=== PATIENT | male | born 1970 | race Two or more races ===

== ENCOUNTER 2017-03-13 12:14 | Inpatient (IN) | payer OTHER ==
[2017-03-13 12:37] VITALS: BMI 23.6
[2017-03-13] MEDS ORDERED: MAGNESIUM CITRATE 300 ML BOTTLE PO PRN (14:09)
[2017-03-13] MEDS ORDERED: MAGNESIUM HYDROX 2400MG/30ML ORAL SUSPENSION 30 ML CUP PO PRN (14:09)
[2017-03-13] MEDS ORDERED: MAG HYDROX/AL HYDROX/SIMETH 30 ML UNIT-DOSE CUP PO PRN (14:09)
[2017-03-13] MEDS ORDERED: guaiFENesin/D-METHORPHAN HB 10 ML UNIT-DOSE CUPS PO PRN (14:09)
[2017-03-13] MEDS ORDERED: MENTHOL/PHENOL 1 EACH UD MM PRN (14:09)
[2017-03-13] MEDS ORDERED: chlordiazePOXIDE HCL 25 MG CAPSULE PO PRN (14:09)
[2017-03-13] MEDS ORDERED: P-EPHED 60MG/TRIPROLIDI 2.5MG TABLET PO PRN (14:09)
[2017-03-13] MEDS ORDERED: IBUPROFEN 400 MG TABLET (FP) PO PRN (14:09)
[2017-03-13] MEDS ORDERED: ACETAMINOPHEN 325 MG TABLET (FP) PO PRN (14:09)
[2017-03-13] MEDS ORDERED: LOPERAMIDE HCL 2 MG CAPSULE PO PRN (14:09)
[2017-03-13] MEDS ORDERED: chlordiazePOXIDE HCL 25 MG CAPSULE PO ONE (14:09)
--- NOTE | 2017-03-13 14:16 | HP ---
CIWA Score - CIWA Score Nausea/Vomitin Muscle Tremors: 4-Moderate,w/Arms Extend Anxiety: 4-Mod. Anxious/Guarded Agitation: 4-Moderately Restless Paroxysmal Sweats: 3 Orientation: 1-Uncertain about Date Tacttile Disturbances: 0-None Auditory Disturbances: 0-None Visual Disturbances: 0-None Headache: 0-None Present CIWA-Ar Total Score: 18 Admission ROS BHS - HPI Chief Complaint: Withdrawal sx. Allergies/Adverse Reactions: Allergies Allergy/AdvReac Type Severity Reaction Status Date / Time No Known Allergies Allergy Verified 03/13/17 13:44 History of Present Illness: 46 y/o man with a long hx. of alcoholism is admitted for detox. Pt. has been in previous detox, denies significant sobriety. Lasr detox at [facility] in December 2016. Exam Limitations: No Limitations - Ebola screening Have you traveled outside of the country in the last 21 days: No Have you had contact with anyone from an Ebola affected area: No Have you been sick,other than usual withdrawal symptoms: No Do you have a fever: No - Review of Systems Constitutional: Diaphoresis EENT: reports: No Symptoms Reported Respiratory: reports: No Symptoms reported Cardiac: reports: No Symptoms Reported GI: reports: Nausea, Abdominal cramping : reports: No Symptoms Reported Musculoskeletal: reports: No Symptoms Reported Integumentary: reports: Sweating Neuro: reports: Seizure (last seizure a year ago), Tremors Endocrine: reports: No Symptoms Reported Hematology: reports: No Symptoms Reported Psychiatric: reports: No Sypmtoms Reported Other Systems: Reviewed and Negative Patient History - Patient Medical History Hx Anemia: No Hx Asthma: No Hx Chronic Obstructive Pulmonary Disease (COPD): No Hx Cancer: No Hx Cardiac Disorders: No Hx Congestive Heart Failure: No Hx Hypertension: Yes Hx Hypercholesterolemia: No Hx Pacemaker: No HX Cerebrovascular Accident: No Hx Seizures: Yes (1 YR AGO) Hx Dementia: No Hx Diabetes: No Hx Gastrointestinal Disorders: No Hx Liver Disease: No Hx Genitourinary Disorders: No Hx Sexually Transmitted Disorders: No Hx Renal Disease (ESRD): No Hx Thyroid Disease: No Hx Human Immunodeficiency Virus (HIV): No Hx Hepatitis C: No Hx Depression: No Hx Suicide Attempt: No Hx Bipolar Disorder: No Hx Schizophrenia: No - Patient Surgical History Past Surgical History: No - PPD History Previous Implant?: Yes Documented Results: Negative w/o proof Implanted On Prior [facility] Admission?: No PPD to be Administered?: Yes - Smoking Cessation Smoking history: Current every day smoker Have you smoked in the past 12 months: Yes Aproximately how many cigarettes per day: 7 Hx Chewing Tobacco Use: No Initiated information on smoking cessation: Yes 'Breaking Loose' booklet given: 03/13/17 - Substance & Tx. History Hx Alcohol Use: Yes Hx Substance Use: No Substance Use Type: Alcohol Hx Substance Use Treatment: Yes (Detox at [facility] in december 2016) - Substances Abused Alcohol Route: Oral Frequency: Daily Amount used: BEER(4 24 OZ CANS)/VODKA 1/2 PINT Age of first use: 22 Date of Last Use: 03/12/17 Family Disease History - Family Disease History Family Disease History: Other: Brother (Alcohol) Admission Physical Exam [facility] - Vital Signs Vital Signs: Vital Signs - 24 hr 03/13/17 12:33 Temperature 97.9 F Pulse Rate 87 Respiratory 20 Rate Blood Pressure 164/112 - Physical General Appearance: Yes: Alcohol on Breath, Tremorous, Irritable, Sweating, Anxious HEENTM: Yes: Within Normal Limits Respiratory: Yes: Chest Non-Tender, Lungs Clear, Normal Breath Sounds Neck: Yes: Supple Breast: Yes: Breast Exam Deferred Cardiology: Yes: Regular Rhythm, Regular Rate, S1, S2 Abdominal: Yes: Normal Bowel Sounds, Non Tender, Flat, Soft Genitourinary: Yes: Within Normal Limits Back: Yes: Within Normal Limits Musculoskeletal: Yes: Within Normal Limits Extremities: Yes: Tremors Neurological: Yes: Fully Oriented, Alert Integumentary: Yes: Diaphoresis Lymphatic: Yes: Within Normal Limits - Diagnostic (1) Alcohol dependence with uncomplicated withdrawal Current Visit: Yes Status: Acute (2) HTN (hypertension) Current Visit: Yes Status: Acute Qualifiers: Hypertension type: essential hypertension Qualified Code(s): I10 - Essential (primary) hypertension Cleared for Admission [facility] - Detox or Rehab [facility] Level of Care: Medically Managed Detox Regimen/Protocol: Librium [facility] Breath Alcohol Content Breath Alcohol Content: 0.069 Urine Drug Screen - Results Drug Screen Negative: Yes
[2017-03-13] MEDS: NICOTINE 21 MG/24 HOURS TOPICAL PATCH TD SCH (15:25)
[2017-03-13] MEDS: amLODIPine BESYLATE 10 MG TABLET (FP) PO SCH (15:26)
[2017-03-13] MEDS: hydrOXYzine PAMOATE 50 MG CAPSULE (FP) PO PRN (15:33)
[2017-03-13] MEDS: chlordiazePOXIDE HCL 25 MG CAPSULE PO SCH ×2 (17:48→22:34)
[2017-03-13 19:17] LABS: URINE APPEARANCE SLCLOUDY; URINE BILIRUBIN NEGATIVE (NEGATIVE); URINE BLOOD 2+ (NEGATIVE); URINE COLOR AMBER; URINE GLUCOSE (UA) NEGATIVE (NEGATIVE); URINE KETONE 1+ (NEGATIVE); URINE LEUK ESTERASE NEGATIVE (NEGATIVE); URINE NITRITE NEGATIVE (NEGATIVE)
[2017-03-13 19:22] LABS: URINE PROTEIN 2+ (NEGATIVE)
[2017-03-13 19:25] LABS: URINE MUCUS MANY; URINE RBC 7 /hpf (0-3); URINE WBC 2 /hpf (3-5)
[2017-03-13] MEDS: diphenhydrAMINE HCL 50 MG CAPSULE PO PRN (22:34)
[2017-03-13] MEDS: THIAMINE HCL 100 MG TABLET (FP) PO SCH (22:34)
[2017-03-14] MEDS: chlordiazePOXIDE HCL 25 MG CAPSULE PO SCH ×4 (05:19→22:01)
[2017-03-14 09:45] LABS: MCH 30.5 pg (25.7-33.7); MCHC 33.7 g/dl (32.0-35.9); MEAN CELL VOLUME 90.4 fl (80-96); MEAN PLT VOLUME 8.4 fl (7.5-11.1); PLATELET COUNT 149 K/MM3 (134-434); RDW 14.2 % (11.9-15.9); WHITE BLOOD COUNT 6.1 K/mm3 (4.0-10.0)
[2017-03-14 09:55] LABS: ALBUMIN 3.3 g/dl (3.4-5.0); ANION GAP 7 (8-16); CALCIUM 8.8 mg/dL (8.5-10.1); CO2 31 mmol/L (21-32); CREATININE 0.9 mg/dL (0.7-1.3); GLUCOSE,RANDOM 87 mg/dL (74-106); SGOT/AST 33 U/L (15-37); SGPT/ALT 26 U/L (12-78); TOT PROT 6.7 g/dl (6.4-8.2)
[2017-03-14 09:56] LABS: ALK PHOS 85 U/L (45-117)
[2017-03-14] MEDS: PRENATAL VITAMINS W/ FOLIC ACID TABLET (FP) PO SCH (10:06)
[2017-03-14] MEDS: amLODIPine BESYLATE 10 MG TABLET (FP) PO SCH (10:08)
[2017-03-14] MEDS: NICOTINE 21 MG/24 HOURS TOPICAL PATCH TD SCH (10:08)
--- NOTE | 2017-03-14 11:04 | PN ---
S CIWA - CIWA Score Nausea/Vomitin Muscle Tremors: 3 Anxiety: 3 Agitation: 2 Paroxysmal Sweats: 1-Minimal Palms Moist Orientation: 0-Oriented Tacttile Disturbances: 1-Very Mild Itch/Numbness Auditory Disturbances: 1-Very Mild Visual Disturbances: 1-Very Mild Sensitivity Headache: 2-Mild CIWA-Ar Total Score: 17 BHS Progress Note (SOAP) Subjective: alert,irritable,anxious,interrupted sleep,tremor Objective: 03/14/17 11:01 Vital Signs Temperature 97 F L 03/14/17 10:16 Pulse Rate 87 03/14/17 10:16 Respiratory Rate 18 03/14/17 10:16 Blood Pressure 150/108 03/14/17 10:16 O2 Sat by Pulse Oximetry (%) ekg nsr,normal ecg 03/14/17 11:02 Laboratory Last Values WBC 6.1 K/mm3 (4.0-10.0) 03/14/17 07:00 RBC 4.56 M/mm3 (4.00-5.60) 03/14/17 07:00 Hgb 13.9 GM/dL (11.7-16.9) 03/14/17 07:00 Hct 41.2 % (35.4-49) 03/14/17 07:00 MCV 90.4 fl (80-96) 03/14/17 07:00 MCH 30.5 pg (25.7-33.7) 03/14/17 07:00 MCHC 33.7 g/dl (32.0-35.9) 03/14/17 07:00 RDW 14.2 % (11.9-15.9) 03/14/17 07:00 Plt Count 149 K/MM3 (134-434) 03/14/17 07:00 MPV 8.4 fl (7.5-11.1) 03/14/17 07:00 Sodium 138 mmol/L (136-145) 03/14/17 07:00 Potassium 3.3 mmol/L (3.5-5.1) L 03/14/17 07:00 Chloride 100 mmol/L (98-107) 03/14/17 07:00 Carbon Dioxide 31 mmol/L (21-32) 03/14/17 07:00 Anion Gap 7 (8-16) L 03/14/17 07:00 BUN 11 mg/dL (7-18) 03/14/17 07:00 Creatinine 0.9 mg/dL (0.7-1.3) 03/14/17 07:00 Creat Clearance w eGFR > 60 (>60) 03/14/17 07:00 Random Glucose 87 mg/dL (74-106) 03/14/17 07:00 Calcium 8.8 mg/dL (8.5-10.1) 03/14/17 07:00 Total Bilirubin 2.0 mg/dL (0.2-1.0) H 03/14/17 07:00 AST 33 U/L (15-37) 03/14/17 07:00 ALT 26 U/L (12-78) 03/14/17 07:00 Alkaline Phosphatase 85 U/L (45-117) 03/14/17 07:00 Total Protein 6.7 g/dl (6.4-8.2) 03/14/17 07:00 Albumin 3.3 g/dl (3.4-5.0) L 03/14/17 07:00 Urine Color Nupur 03/13/17 18:00 Urine Appearance Slcloudy 03/13/17 18:00 Urine pH 5.0 (5.0-8.0) 03/13/17 18:00 Ur Specific [place] 1.025 (1.005-1.025) 03/13/17 18:00 Urine Protein 2+ (NEGATIVE) H 03/13/17 18:00 Urine Glucose (UA) Negative (NEGATIVE) 03/13/17 18:00 Urine Ketones 1+ (NEGATIVE) H 03/13/17 18:00 Urine Blood 2+ (NEGATIVE) H 03/13/17 18:00 Urine Nitrite Negative (NEGATIVE) 03/13/17 18:00 Urine Bilirubin Negative (NEGATIVE) 03/13/17 18:00 Urine Urobilinogen 2.0 mg/dL (0.2-1.0) 03/13/17 18:00 Urine RBC 7 /hpf (0-3) 03/13/17 18:00 Urine WBC 2 /hpf (3-5) 03/13/17 18:00 Ur Epithelial Cells Rare /hpf (FEW) 03/13/17 18:00 Urine Mucus Many 03/13/17 18:00 Assessment: 03/14/17 11:02 withdrawal symptom Plan: continue detox,k dur 20 meq po daily for hypokalemia k is 3.3
[2017-03-14] MEDS: POTASSIUM CHLORIDE TABS 20 MEQ TABLET.ER (FP) PO SCH (13:47)
[2017-03-14] MEDS: NICOTINE POLACRILEX 2 MG GUM BC PRN (15:33)
--- NOTE | 2017-03-14 17:01 | EKG ---
Test Reason : Blood Pressure : / mmHG Vent. Rate : 074 BPM Atrial Rate : 074 BPM P-R Int : 140 ms QRS Dur : 090 ms QT Int : 404 ms P-R-T Axes : 038 -02 021 degrees QTc Int : 448 ms NORMAL SINUS RHYTHM NORMAL ECG NO PREVIOUS ECGS AVAILABLE Confirmed by HEIDI ARGUETA MD ([id number]) on 03/14/2017 5:00:50 PM Referred By: Confirmed By:HEIDI ARGUETA MD
[2017-03-14] MEDS: diphenhydrAMINE HCL 50 MG CAPSULE PO PRN (22:01)
[2017-03-14] MEDS: THIAMINE HCL 100 MG TABLET (FP) PO SCH (22:03)
[2017-03-15] MEDS: chlordiazePOXIDE HCL 25 MG CAPSULE PO SCH ×2 (05:27→10:47)
[2017-03-15] MEDS: hydrOXYzine PAMOATE 50 MG CAPSULE (FP) PO PRN (08:58)
[2017-03-15] MEDS: NICOTINE 21 MG/24 HOURS TOPICAL PATCH TD SCH (10:47)
[2017-03-15] MEDS: PRENATAL VITAMINS W/ FOLIC ACID TABLET (FP) PO SCH (10:47)
[2017-03-15] MEDS: amLODIPine BESYLATE 10 MG TABLET (FP) PO SCH (10:47)
[2017-03-15] MEDS: POTASSIUM CHLORIDE TABS 20 MEQ TABLET.ER (FP) PO SCH ×2 (10:47→22:04)
--- NOTE | 2017-03-15 10:50 | PN ---
S CIWA - CIWA Score Nausea/Vomitin Muscle Tremors: 3 Anxiety: 2 Agitation: 2 Paroxysmal Sweats: 1-Minimal Palms Moist Orientation: 0-Oriented Tacttile Disturbances: 1-Very Mild Itch/Numbness Auditory Disturbances: 1-Very Mild Visual Disturbances: 1-Very Mild Sensitivity Headache: 2-Mild CIWA-Ar Total Score: 16 S Progress Note (SOAP) Subjective: alert,irritable,anxious,interrupted sleep,tremor Objective: 03/15/17 10:48 Vital Signs Temperature 97.9 F 03/15/17 09:58 Pulse Rate 85 03/15/17 09:58 Respiratory Rate 18 03/15/17 09:58 Blood Pressure 132/96 03/15/17 09:58 O2 Sat by Pulse Oximetry (%) 03/15/17 10:48 Laboratory Last Values WBC 6.1 K/mm3 (4.0-10.0) 03/14/17 07:00 RBC 4.56 M/mm3 (4.00-5.60) 03/14/17 07:00 Hgb 13.9 GM/dL (11.7-16.9) 03/14/17 07:00 Hct 41.2 % (35.4-49) 03/14/17 07:00 MCV 90.4 fl (80-96) 03/14/17 07:00 MCH 30.5 pg (25.7-33.7) 03/14/17 07:00 MCHC 33.7 g/dl (32.0-35.9) 03/14/17 07:00 RDW 14.2 % (11.9-15.9) 03/14/17 07:00 Plt Count 149 K/MM3 (134-434) 03/14/17 07:00 MPV 8.4 fl (7.5-11.1) 03/14/17 07:00 Sodium 138 mmol/L (136-145) 03/14/17 07:00 Potassium 3.2 mmol/L (3.5-5.1) L 03/15/17 07:00 Chloride 100 mmol/L (98-107) 03/14/17 07:00 Carbon Dioxide 31 mmol/L (21-32) 03/14/17 07:00 Anion Gap 7 (8-16) L 03/14/17 07:00 BUN 11 mg/dL (7-18) 03/14/17 07:00 Creatinine 0.9 mg/dL (0.7-1.3) 03/14/17 07:00 Creat Clearance w eGFR > 60 (>60) 03/14/17 07:00 Random Glucose 87 mg/dL (74-106) 03/14/17 07:00 Calcium 8.8 mg/dL (8.5-10.1) 03/14/17 07:00 Total Bilirubin 2.0 mg/dL (0.2-1.0) H 03/14/17 07:00 AST 33 U/L (15-37) 03/14/17 07:00 ALT 26 U/L (12-78) 03/14/17 07:00 Alkaline Phosphatase 85 U/L (45-117) 03/14/17 07:00 Total Protein 6.7 g/dl (6.4-8.2) 03/14/17 07:00 Albumin 3.3 g/dl (3.4-5.0) L 03/14/17 07:00 Urine Color Nupur 03/13/17 18:00 Urine Appearance Slcloudy 03/13/17 18:00 Urine pH 5.0 (5.0-8.0) 03/13/17 18:00 Ur Specific [place] 1.025 (1.005-1.025) 03/13/17 18:00 Urine Protein 2+ (NEGATIVE) H 03/13/17 18:00 Urine Glucose (UA) Negative (NEGATIVE) 03/13/17 18:00 Urine Ketones 1+ (NEGATIVE) H 03/13/17 18:00 Urine Blood 2+ (NEGATIVE) H 03/13/17 18:00 Urine Nitrite Negative (NEGATIVE) 03/13/17 18:00 Urine Bilirubin Negative (NEGATIVE) 03/13/17 18:00 Urine Urobilinogen 2.0 mg/dL (0.2-1.0) 03/13/17 18:00 Urine RBC 7 /hpf (0-3) 03/13/17 18:00 Urine WBC 2 /hpf (3-5) 03/13/17 18:00 Ur Epithelial Cells Rare /hpf (FEW) 03/13/17 18:00 Urine Mucus Many 03/13/17 18:00 RPR Titer Nonreactive (NONREACTIVE) 03/14/17 07:00 Assessment: 03/15/17 10:48 withdrawal symptom Plan: continue detox,k replacement for hypokalemia
[2017-03-15] MEDS: chlordiazePOXIDE 5 MG CAPSULE PO SCH ×2 (17:32→22:04)
[2017-03-15] MEDS: THIAMINE HCL 100 MG TABLET (FP) PO SCH (22:05)
[2017-03-15] MEDS: diphenhydrAMINE HCL 50 MG CAPSULE PO PRN (22:07)
[2017-03-16] MEDS: chlordiazePOXIDE 5 MG CAPSULE PO SCH ×2 (05:52→10:38)
[2017-03-16] MEDS: PRENATAL VITAMINS W/ FOLIC ACID TABLET (FP) PO SCH (10:38)
[2017-03-16] MEDS: POTASSIUM CHLORIDE TABS 20 MEQ TABLET.ER (FP) PO SCH ×2 (10:38→22:07)
[2017-03-16] MEDS: amLODIPine BESYLATE 10 MG TABLET (FP) PO SCH (10:38)
[2017-03-16] MEDS: NICOTINE 21 MG/24 HOURS TOPICAL PATCH TD SCH (10:40)
[2017-03-16] MEDS: NICOTINE POLACRILEX 2 MG GUM BC PRN (10:43)
--- NOTE | 2017-03-16 11:50 | PN ---
S Progress Note (SOAP) Subjective: alert,irritable,anxious,interrupted sleep, positive ppd 15 mm,has previous bcg immonization in the past Objective: 03/16/17 11:49 Vital Signs Temperature 97.2 F L 03/16/17 09:58 Pulse Rate 89 03/16/17 09:58 Respiratory Rate 03/16/17 09:58 Blood Pressure 133/98 03/16/17 09:58 O2 Sat by Pulse Oximetry (%) Assessment: 03/16/17 11:49 withdrawal symptom Plan: continue detox,discharge in am,chest xray today for positive ppd
[2017-03-16] MEDS: chlordiazePOXIDE HCL 10 MG CAPSULE PO SCH ×2 (17:39→22:07)
[2017-03-16] MEDS: diphenhydrAMINE HCL 50 MG CAPSULE PO PRN (22:07)
[2017-03-16] MEDS: THIAMINE HCL 100 MG TABLET (FP) PO SCH (22:07)
[2017-03-17] MEDS: chlordiazePOXIDE HCL 10 MG CAPSULE PO SCH (05:27)
--- NOTE | 2017-03-17 08:51 | DS ---
[facility] Detox Discharge Summary Admission Date: 03/13/17 Discharge Date: 03/17/17 - History Present History: Alcohol Dependence Additional Comments: follow up with after care program as arrangement Pertinent Past History: hypertension - Physical Exam Results Vital Signs: Vital Signs Temperature 97.9 F 03/17/17 06:26 Pulse Rate 65 03/17/17 06:26 Respiratory Rate 16 03/17/17 06:26 Blood Pressure 130/77 03/17/17 06:26 O2 Sat by Pulse Oximetry (%) Pertinent Admission Physical Exam Findings: withdrawal symptom - Treatment Hospital Course: Detox Protocol Followed, Detoxed Safely, Responded well, Discharged Condition Good Patient has Accepted a Rehab Referral to: declined - Medication Discharge Medications: Ambulatory Orders Amlodipine Besylate [Norvasc -] 10 mg PO DAILY 03/13/17 - Diagnosis (1) Positive PPD Current Visit: Yes Status: Acute - AMA Did Patient Leave Against Medical Advice: No
[2017-03-17 09:46] VITALS: BP 140/100; PULSE 71; TEMP 97
[2017-03-17] MEDS: amLODIPine BESYLATE 10 MG TABLET (FP) PO SCH (10:04)
[2017-03-17] MEDS: PRENATAL VITAMINS W/ FOLIC ACID TABLET (FP) PO SCH (10:04)
[2017-03-17] MEDS: POTASSIUM CHLORIDE TABS 20 MEQ TABLET.ER (FP) PO SCH (10:04)
== END 2017-03-17 10:15 | disposition home or self-care (01) | DRG 775 ==
LOC: YASAS 12:14 → Y6N 15:08
PROVIDERS: ADMIT Internal Medicine; ATTEND Internal Medicine
PROC: HZ2ZZZZ Detoxification Services for Substance Abuse Treatment (ICD-10-PCS; principal; 2017-03-13)
DX: F10.20 Alcohol dependence, uncomplicated (principal); I10 Essential (primary) hypertension; G40.909 Epilepsy, unspecified, not intractable, without status epilepticus; R76.11 Nonspecific reaction to tuberculin skin test without active tuberculosis; Z59.0 Homelessness
CPT/HCPCS: 36415; 71010-TC; 80053; 81003; 81015; 84132; 85027; 86593; 93005; 93010

== ENCOUNTER 2021-11-27 18:19 | Inpatient (IN) | payer OTHER ==
[2021-11-27 19:37] VITALS: BMI 23.2
[2021-11-27] MEDS ORDERED: ONDANSETRON *ODT* 4 MG TABLET SL PRN (22:24)
[2021-11-27] MEDS ORDERED: IBUPROFEN 600 MG TABLET (FP) PO PRN (22:24)
[2021-11-27] MEDS ORDERED: MAGNESIUM CITRATE 300 ML BOTTLE PO PRN (22:24)
[2021-11-27] MEDS ORDERED: MAG HYDROX/AL HYDROX/SIMETH 30 ML UNIT-DOSE CUP PO PRN (22:24)
[2021-11-27] MEDS ORDERED: BISMUTH SUBSALICYLATE 524 MG/30 ML PO PRN (22:24)
[2021-11-27] MEDS ORDERED: NICOTINE POLACRILEX 2 MG GUM BUC PRN (22:24)
[2021-11-27] MEDS ORDERED: LOPERAMIDE HCL 2 MG CAPSULE PO PRN (22:24)
[2021-11-27] MEDS ORDERED: MAGNESIUM HYDROX 2400MG/30ML ORAL SUSPENSION 30 ML CUP PO PRN (22:24)
[2021-11-27] MEDS ORDERED: IBUPROFEN 400 MG TABLET (FP) PO PRN (22:24)
[2021-11-27] MEDS ORDERED: ACETAMINOPHEN 325 MG TABLET (FP) PO PRN ×2 (22:24)
[2021-11-27] MEDS ORDERED: BENZOCAINE/MENTHOL (CHLORASEPTIC ) LOZENGE MM PRN (22:24)
[2021-11-27] MEDS ORDERED: DICYCLOMINE HCL 10 MG CAPSULE PO PRN (22:24)
[2021-11-27] MEDS ORDERED: chlordiazePOXIDE HCL 25 MG CAPSULE PO PRN (22:24)
[2021-11-28] MEDS: chlordiazePOXIDE HCL 25 MG CAPSULE PO SCH ×5 (01:00→22:26)
[2021-11-28] MEDS: amLODIPine BESYLATE 10 MG TABLET (FP) PO SCH (09:00)
[2021-11-28 10:53] LABS: HEMATOCRIT 35.7 % (35.4-49); HEMOGLOBIN 12.5 GM/dL (11.7-16.9); MCH 34.2 pg (25.7-33.7); MCHC 35.1 g/dl (32.0-35.9); MEAN CELL VOLUME 97.5 fl (80-96); MEAN PLT VOLUME 8.6 fl (7.5-11.1); RBC 3.66 M/mm3 (4.00-5.60); RDW 14.1 % (11.9-15.9)
[2021-11-28 10:55] LABS: PLATELET COUNT 143 10^3/uL (134-434); WHITE BLOOD COUNT 8.3 K/mm3 (4.0-10.0)
[2021-11-28 11:07] LABS: ALBUMIN 3.4 g/dl (3.4-5.0); BLOOD UREA NITROGEN 11.3 mg/dL (7-18); CALCIUM 8.7 mg/dL (8.5-10.1)
[2021-11-28 11:09] LABS: BILIRUBIN,TOTAL 0.6 mg/dL (0.2-1); TOT PROT 7.9 g/dl (6.4-8.2)
[2021-11-28] MEDS: METHOCARBAMOL 500 MG TABLET PO PRN (12:07)
[2021-11-28] MEDS: PRENATAL VITAMINS W/ FOLIC ACID TABLET (FP) PO SCH (12:07)
[2021-11-28] MEDS: NICOTINE 14 MG/24 HOURS TOPICAL PATCH TD SCH (12:10)
[2021-11-28] MEDS ORDERED: cloNIDine HCL 0.1 MG TABLET PO ONE (15:34)
[2021-11-28] MEDS: THIAMINE HCL 100 MG TABLET (FP) PO SCH (22:26)
[2021-11-28] MEDS: MELATONIN 5 MG TABLETS PO SCH (22:27)
[2021-11-29] MEDS: chlordiazePOXIDE HCL 25 MG CAPSULE PO SCH ×4 (06:02→22:14)
[2021-11-29] MEDS: PRENATAL VITAMINS W/ FOLIC ACID TABLET (FP) PO SCH (10:07)
[2021-11-29] MEDS: NICOTINE 14 MG/24 HOURS TOPICAL PATCH TD SCH (10:07)
[2021-11-29] MEDS: METHOCARBAMOL 500 MG TABLET PO PRN ×2 (10:07→22:13)
[2021-11-29] MEDS: amLODIPine BESYLATE 10 MG TABLET (FP) PO SCH (10:07)
[2021-11-29] MEDS: THIAMINE HCL 100 MG TABLET (FP) PO SCH (22:13)
[2021-11-29] MEDS: LISINOPRIL 10 MG TABLET PO SCH (22:13)
[2021-11-29] MEDS: MELATONIN 5 MG TABLETS PO SCH (22:14)
[2021-11-30] MEDS ORDERED: chlordiazePOXIDE HCL 10 MG CAPSULE PO PRN
[2021-11-30] MEDS: chlordiazePOXIDE HCL 10 MG CAPSULE PO SCH ×4 (06:09→22:39)
[2021-11-30] MEDS: NICOTINE 14 MG/24 HOURS TOPICAL PATCH TD SCH (10:14)
[2021-11-30] MEDS: amLODIPine BESYLATE 10 MG TABLET (FP) PO SCH (10:14)
[2021-11-30] MEDS: PRENATAL VITAMINS W/ FOLIC ACID TABLET (FP) PO SCH (10:14)
[2021-11-30] MEDS: LISINOPRIL 10 MG TABLET PO SCH ×2 (10:14→22:39)
[2021-11-30] MEDS: METHOCARBAMOL 500 MG TABLET PO PRN ×2 (13:17→22:39)
[2021-11-30] MEDS: MELATONIN 5 MG TABLETS PO SCH (22:38)
[2021-11-30] MEDS: THIAMINE HCL 100 MG TABLET (FP) PO SCH (22:39)
[2021-12-01] MEDS: chlordiazePOXIDE HCL 10 MG CAPSULE PO SCH ×2 (05:41→17:48)
[2021-12-01] MEDS: LISINOPRIL 10 MG TABLET PO SCH ×2 (10:16→22:28)
[2021-12-01] MEDS: NICOTINE 14 MG/24 HOURS TOPICAL PATCH TD SCH (10:16)
[2021-12-01] MEDS: PRENATAL VITAMINS W/ FOLIC ACID TABLET (FP) PO SCH (10:16)
[2021-12-01] MEDS: amLODIPine BESYLATE 10 MG TABLET (FP) PO SCH (10:16)
[2021-12-01] MEDS: MELATONIN 5 MG TABLETS PO SCH (22:27)
[2021-12-01] MEDS: THIAMINE HCL 100 MG TABLET (FP) PO SCH (22:27)
[2021-12-02] MEDS ORDERED: chlordiazePOXIDE HCL 10 MG CAPSULE PO ONE (05:00)
[2021-12-02] MEDS: amLODIPine BESYLATE 10 MG TABLET (FP) PO SCH (08:59)
[2021-12-02] MEDS: LISINOPRIL 10 MG TABLET PO SCH (08:59)
[2021-12-02] MEDS: PRENATAL VITAMINS W/ FOLIC ACID TABLET (FP) PO SCH (09:00)
[2021-12-02] MEDS: NICOTINE 14 MG/24 HOURS TOPICAL PATCH TD SCH (09:01)
[2021-12-02 09:38] VITALS: BP 141/99; PULSE 64; TEMP 97.3
== END 2021-12-02 10:20 | disposition home or self-care (01) | DRG 775 ==
LOC: YASAS 18:19 → Y6N 22:50
PROVIDERS: ADMIT Surgery; ATTEND Allergy & Immunology
PROC: HZ2ZZZZ Detoxification Services for Substance Abuse Treatment (ICD-10-PCS; principal; 2021-11-27)
DX: F10.230 Alcohol dependence with withdrawal, uncomplicated (principal); I10 Essential (primary) hypertension; R74.01 Elevation of levels of liver transaminase levels
CPT/HCPCS: 36415; 71046-TC-FY; 80053; 82962; 84450; 85027; 86780; 93005; 93010; C9803-CS; J0735; U0003; U0005

== ENCOUNTER 2022-02-08 17:01 | Inpatient (IN) | payer OTHER ==
[2022-02-08 19:15] VITALS: BMI 23.6
[2022-02-08] MEDS ORDERED: DICYCLOMINE HCL 10 MG CAPSULE PO PRN (19:34)
[2022-02-08] MEDS ORDERED: ONDANSETRON *ODT* 4 MG TABLET SL PRN (19:34)
[2022-02-08] MEDS ORDERED: MAG HYDROX/AL HYDROX/SIMETH 30 ML UNIT-DOSE CUP PO PRN (19:34)
[2022-02-08] MEDS ORDERED: ACETAMINOPHEN 325 MG TABLET (FP) PO PRN ×2 (19:34)
[2022-02-08] MEDS ORDERED: IBUPROFEN 600 MG TABLET (FP) PO PRN (19:34)
[2022-02-08] MEDS ORDERED: chlordiazePOXIDE HCL 25 MG CAPSULE PO PRN (19:34)
[2022-02-08] MEDS ORDERED: BISMUTH SUBSALICYLATE 524 MG/30 ML PO PRN (19:34)
[2022-02-08] MEDS ORDERED: NICOTINE 10 MG CARTRIDGE (INHALER) IH PRN (19:34)
[2022-02-08] MEDS ORDERED: MAGNESIUM HYDROX 2400MG/30ML ORAL SUSPENSION 30 ML CUP PO PRN (19:34)
[2022-02-08] MEDS ORDERED: LOPERAMIDE HCL 2 MG CAPSULE PO PRN (19:34)
[2022-02-08] MEDS ORDERED: BENZOCAINE/MENTHOL (CHLORASEPTIC ) LOZENGE MM PRN (19:34)
[2022-02-08] MEDS ORDERED: MAGNESIUM CITRATE 300 ML BOTTLE PO PRN (19:34)
[2022-02-08] MEDS ORDERED: amLODIPine BESYLATE 5 MG TABLET (FP) ONE (20:36)
[2022-02-08] MEDS: amLODIPine BESYLATE 10 MG TABLET (FP) PO SCH (20:38)
[2022-02-08] MEDS: THIAMINE HCL 100 MG TABLET (FP) PO SCH (23:08)
[2022-02-08] MEDS: chlordiazePOXIDE HCL 25 MG CAPSULE PO SCH (23:08)
[2022-02-08] MEDS: MELATONIN 5 MG TABLETS PO SCH (23:09)
[2022-02-09] MEDS: hydrOXYzine PAMOATE 25 MG CAPSULE (FP) PO PRN ×2 (05:15→10:57)
[2022-02-09] MEDS: chlordiazePOXIDE HCL 25 MG CAPSULE PO SCH ×4 (05:15→22:13)
[2022-02-09] MEDS ORDERED: PNEUMOC 20-VAL CONJ-DIP CRM/PF 0.5 ML SYRINGE IM ONE (10:00)
[2022-02-09] MEDS: PRENATAL VITAMINS W/ FOLIC ACID TABLET (FP) PO SCH (10:56)
[2022-02-09] MEDS: amLODIPine BESYLATE 10 MG TABLET (FP) PO SCH (10:56)
[2022-02-09] MEDS: METHOCARBAMOL 500 MG TABLET PO PRN (10:57)
[2022-02-09 12:28] LABS: HEMATOCRIT 38.4 % (35.4-49); MCH 32.4 pg (25.7-33.7); MCHC 33.8 g/dl (32.0-35.9); MEAN CELL VOLUME 96.1 fl (80-96); MEAN PLT VOLUME 8.2 fl (7.5-11.1); PLATELET COUNT 170 10^3/uL (134-434); RDW 13.8 % (11.9-15.9); WHITE BLOOD COUNT 4.1 K/mm3 (4.0-10.0)
[2022-02-09 12:36] LABS: ALBUMIN 3.3 g/dl (3.4-5.0); CALCIUM 8.9 mg/dL (8.5-10.1)
[2022-02-09 12:37] LABS: BLOOD UREA NITROGEN 11.6 mg/dL (7-18)
[2022-02-09 12:39] LABS: CREATININE 1.2 mg/dL (0.55-1.3)
[2022-02-09 12:40] LABS: BILIRUBIN,TOTAL 0.9 mg/dL (0.2-1); TOT PROT 7.6 g/dl (6.4-8.2)
[2022-02-09 13:28] LABS: HIV INTERPRETATION NEGATIVE (NEGATIVE)
[2022-02-09] MEDS: IBUPROFEN 400 MG TABLET (FP) PO PRN (20:45)
[2022-02-09] MEDS: MELATONIN 5 MG TABLETS PO SCH (22:12)
[2022-02-09] MEDS: THIAMINE HCL 100 MG TABLET (FP) PO SCH (22:12)
[2022-02-10] MEDS: chlordiazePOXIDE HCL 25 MG CAPSULE PO SCH ×4 (05:49→22:34)
[2022-02-10] MEDS: METHOCARBAMOL 500 MG TABLET PO PRN (10:29)
[2022-02-10] MEDS: PRENATAL VITAMINS W/ FOLIC ACID TABLET (FP) PO SCH (10:29)
[2022-02-10] MEDS: amLODIPine BESYLATE 10 MG TABLET (FP) PO SCH (10:29)
[2022-02-10] MEDS: hydrOXYzine PAMOATE 25 MG CAPSULE (FP) PO PRN (10:29)
[2022-02-10] MEDS: THIAMINE HCL 100 MG TABLET (FP) PO SCH (22:36)
[2022-02-10] MEDS: MELATONIN 5 MG TABLETS PO SCH (22:36)
[2022-02-11] MEDS ORDERED: chlordiazePOXIDE HCL 10 MG CAPSULE PO PRN
[2022-02-11] MEDS: chlordiazePOXIDE HCL 10 MG CAPSULE PO SCH ×4 (05:21→22:10)
[2022-02-11] MEDS: hydrOXYzine PAMOATE 25 MG CAPSULE (FP) PO PRN ×2 (05:22→10:05)
[2022-02-11] MEDS: METHOCARBAMOL 500 MG TABLET PO PRN (10:05)
[2022-02-11] MEDS: amLODIPine BESYLATE 10 MG TABLET (FP) PO SCH (10:05)
[2022-02-11] MEDS: PRENATAL VITAMINS W/ FOLIC ACID TABLET (FP) PO SCH (10:06)
[2022-02-11] MEDS ORDERED: cloNIDine HCL 0.1 MG TABLET PO ONE (10:19)
[2022-02-11] MEDS: MELATONIN 5 MG TABLETS PO SCH (22:09)
[2022-02-11] MEDS: THIAMINE HCL 100 MG TABLET (FP) PO SCH (22:10)
[2022-02-12] MEDS: chlordiazePOXIDE HCL 10 MG CAPSULE PO SCH ×2 (05:27→17:39)
[2022-02-12] MEDS: PRENATAL VITAMINS W/ FOLIC ACID TABLET (FP) PO SCH (10:56)
[2022-02-12] MEDS: amLODIPine BESYLATE 10 MG TABLET (FP) PO SCH (10:57)
[2022-02-12] MEDS: METHOCARBAMOL 500 MG TABLET PO PRN (10:57)
[2022-02-12] MEDS: hydrOXYzine PAMOATE 25 MG CAPSULE (FP) PO PRN (10:57)
[2022-02-12] MEDS: IBUPROFEN 400 MG TABLET (FP) PO PRN (10:57)
[2022-02-12] MEDS ORDERED: ARTIFICIAL TEARS (POLYVINYL ALCOHOL) OPTH DROPS OU ONE (13:07)
[2022-02-12] MEDS: ARTIFICIAL TEARS (POLYVINYL ALCOHOL) OPTH DROPS OU SCH ×2 (15:01→22:20)
[2022-02-12] MEDS: THIAMINE HCL 100 MG TABLET (FP) PO SCH (22:17)
[2022-02-12] MEDS: MELATONIN 5 MG TABLETS PO SCH (22:20)
[2022-02-13] MEDS ORDERED: chlordiazePOXIDE HCL 10 MG CAPSULE PO ONE (05:00)
[2022-02-13 06:16] VITALS: RESP 18
[2022-02-13] MEDS: PRENATAL VITAMINS W/ FOLIC ACID TABLET (FP) PO SCH (09:16)
[2022-02-13] MEDS: amLODIPine BESYLATE 10 MG TABLET (FP) PO SCH (09:16)
[2022-02-13] MEDS: ARTIFICIAL TEARS (POLYVINYL ALCOHOL) OPTH DROPS OU SCH (09:17)
[2022-02-13 09:48] VITALS: BP 139/95; PULSE 88; TEMP 97.5
== END 2022-02-13 09:25 | disposition home or self-care (01) | DRG 774 ==
LOC: YASAS 17:01 → Y6N 20:53
PROVIDERS: ADMIT Allergy & Immunology; ATTEND Surgery
PROC: HZ2ZZZZ Detoxification Services for Substance Abuse Treatment (ICD-10-PCS; principal; 2022-02-08)
DX: F10.230 Alcohol dependence with withdrawal, uncomplicated (principal); F14.10 Cocaine abuse, uncomplicated; F17.210 Nicotine dependence, cigarettes, uncomplicated; F19.282 Other psychoactive substance dependence with psychoactive substance-induced sleep disorder; F19.24 Other psychoactive substance dependence with psychoactive substance-induced mood disorder; I10 Essential (primary) hypertension; Z86.69 Personal history of other diseases of the nervous system and sense organs
CPT/HCPCS: 36415; 80053; 85027; 86780; 87389; 87811; 90677; C9803-CS; J0735; U0003; U0005

== ENCOUNTER 2022-11-10 15:36 | Inpatient (IN) | payer OTHER ==
[2022-11-10] MEDS ORDERED: diazePAM CARPU-JECT 10 MG/2 ML DISP.SYRIN ONE (16:03)
[2022-11-10] MEDS ORDERED: diazePAM CARPU-JECT 10 MG/2 ML DISP.SYRIN IVPUSH ONE (16:10)
[2022-11-10 16:21] LABS: BASO % 1.1 % (0-2.0); EOS % 0.9 % (0-4.5); HEMATOCRIT 38.1 % (35.4-49); HEMOGLOBIN 13.2 GM/dL (11.7-16.9); LYMPH % 20.2 % (8-40); MCH 33.9 pg (25.7-33.7); MCHC 34.6 g/dl (32.0-35.9); MEAN CELL VOLUME 98.1 fl (80-96); MONO % 13.3 % (3.8-10.2); NEUT % 64.5 % (42.8-82.8); PLATELET COUNT 170 10^3/uL (134-434); RBC 3.88 M/mm3 (4.00-5.60); RDW 13.1 % (11.9-15.9); WHITE BLOOD COUNT 6.9 K/mm3 (4.0-10.0)
[2022-11-10 16:49] LABS: CHLORIDE 98 mmol/L (98-107); POTASSIUM 3.4 mmol/L (3.5-5.1); SODIUM 139 mmol/L (136-145)
[2022-11-10 16:51] LABS: ALBUMIN 3.7 g/dl (3.4-5.0); ANION GAP 13 MMOL/L (8-16); BLOOD UREA NITROGEN 12.4 mg/dL (7-18); CALCIUM 10.3 mg/dL (8.5-10.1); CO2 28 mmol/L (21-32); GLUCOSE,RANDOM 136 mg/dL (74-106)
[2022-11-10 16:54] LABS: PHOSPHOROUS 1.8 mg/dL (2.5-4.9); SGOT/AST 316 U/L (15-37); SGPT/ALT 89 U/L (13-61)
[2022-11-10 16:55] LABS: BILIRUBIN,TOTAL 1.3 mg/dL (0.2-1); CREATININE 1.5 mg/dL (0.55-1.3)
[2022-11-10 16:56] LABS: TOT PROT 8.8 g/dl (6.4-8.2)
[2022-11-10 16:57] LABS: ALK PHOS 110 U/L (45-117)
[2022-11-10 17:01] LABS: MAGNESIUM 0.7 mg/dL (1.8-2.4)
[2022-11-10] MEDS ORDERED: POTASSIUM CHLORIDE ORAL LIQUID 20 MEQ/15 ML PO ONE (17:21)
[2022-11-10] MEDS ORDERED: POTASSIUM CHLORIDE ORAL LIQUID 20 MEQ/15 ML ONE (17:30)
[2022-11-10] MEDS ORDERED: MAGNESIUM SULFATE IN WATER 2 GM/50 ML IVPB IVPB ONE (17:30)
[2022-11-10] MEDS ORDERED: amLODIPine BESYLATE 10 MG TABLET (FP) PO ONE (19:51)
[2022-11-10] MEDS ORDERED: amLODIPine BESYLATE 10 MG TABLET (FP) ONE (19:54)
[2022-11-10 20:23] LABS: BILIRUBIN,DIRECT 0.6 mg/dL (0.0-0.2)
[2022-11-10] MEDS ORDERED: DOCUSATE SODIUM 100 MG CAPSULE (FP) PO PRN (20:32)
[2022-11-10] MEDS ORDERED: LORazepam 1 MG TABLET PO PRN ×2 (20:35→21:03)
[2022-11-10] MEDS ORDERED: FOLIC ACID INJECTION - 1 MG, THIAMINE HCL 100 MG, MULTIVIT INJECTION ADULT 10 ML in SOD... IVPB ONE (20:59)
[2022-11-10 21:17] LABS: EPI CELLS 1 /uL (0-25.1); HYALINE CASTS 0 /uL (0-3.1); PHENCYCLIDINE,URINE NEGATIVE (NEGATIVE); URINE APPEARANCE CLEAR; URINE BACTERIA 1 /uL (0-1359); URINE BARBITURATES NEGATIVE (NEGATIVE); URINE BILIRUBIN NEGATIVE (NEGATIVE); URINE COLOR YELLOW; URINE GLUCOSE (UA) NEGATIVE (NEGATIVE); URINE KETONE NEGATIVE (NEGATIVE); URINE LEUK ESTERASE NEGATIVE (NEGATIVE); URINE NITRITE NEGATIVE (NEGATIVE); URINE PROTEIN 3+ (NEGATIVE); URINE RBC 10 /uL (0-23.9); URINE WBC 3 /uL (0-25.8)
[2022-11-10 21:18] LABS: METHADONE, UR NEGATIVE (NEGATIVE); OPIATES, URI NEGATIVE (NEGATIVE)
[2022-11-10 21:19] LABS: COCAINE, UR POSITIVE (NEGATIVE); URINE AMPHETAMINES NEGATIVE (NEGATIVE); URINE BENZODIAZEPINES POSITIVE (NEGATIVE)
[2022-11-10] MEDS: HEPARIN NA (PORCINE) 5,000 UNITS/ML 1ML VIAL SQ SCH (23:29)
[2022-11-11 05:46] VITALS: BMI 24.0
[2022-11-11] MEDS: HEPARIN NA (PORCINE) 5,000 UNITS/ML 1ML VIAL SQ SCH ×3 (07:00→22:22)
[2022-11-11 07:53] LABS: HEMATOCRIT 34.9 % (35.4-49); HEMOGLOBIN 12.5 GM/dL (11.7-16.9); MCH 34.8 pg (25.7-33.7); MCHC 35.9 g/dl (32.0-35.9); MEAN CELL VOLUME 96.9 fl (80-96); MEAN PLT VOLUME 8.7 fl (7.5-11.1); PLATELET COUNT 146 10^3/uL (134-434); RDW 13.3 % (11.9-15.9); WHITE BLOOD COUNT 5.3 K/mm3 (4.0-10.0)
[2022-11-11 08:09] LABS: ALBUMIN 3.3 g/dl (3.4-5.0)
[2022-11-11 08:12] LABS: BILIRUBIN,DIRECT 0.6 mg/dL (0.0-0.2)
[2022-11-11 08:14] LABS: BILIRUBIN,TOTAL 1.3 mg/dL (0.2-1); TOT PROT 7.7 g/dl (6.4-8.2)
[2022-11-11 08:22] LABS: POTASSIUM 3.2 mmol/L (3.5-5.1)
[2022-11-11 08:25] LABS: BLOOD UREA NITROGEN 8.6 mg/dL (7-18); MAGNESIUM 1.2 mg/dL (1.8-2.4)
[2022-11-11 08:28] LABS: CALCIUM 8.6 mg/dL (8.5-10.1); PHOSPHOROUS 2.4 mg/dL (2.5-4.9)
[2022-11-11] MEDS ORDERED: LORazepam 1 MG TABLET PO PRN (08:36)
[2022-11-11] MEDS ORDERED: LORazepam 2 MG TABLET PO SCH (08:36)
[2022-11-11] MEDS ORDERED: MAGNESIUM SULF 50% (8.12 MEQ/2 ML-1 GM VIAL) IVPB ONE (09:46)
[2022-11-11] MEDS ORDERED: MAGNESIUM OXIDE 400 MG TABLET (FP) PO ONE (09:46)
[2022-11-11] MEDS: NICOTINE 14 MG/24 HOURS TOPICAL PATCH TD SCH (10:49)
[2022-11-11] MEDS: NAPH,MB-DB/K PH,MBDB POWDER PACKET PO SCH ×3 (10:49→22:22)
[2022-11-11] MEDS: PANTOPRAZOLE 20 MG TABLET PO SCH (10:50)
[2022-11-11] MEDS: POTASSIUM CHLORIDE TABS 20 MEQ TABLET.ER (FP) PO SCH ×2 (10:50→22:22)
[2022-11-11] MEDS: MULTIVITAMINS (DAILY MVI) TABLET (FP) PO SCH (10:50)
[2022-11-11] MEDS: FOLIC ACID 1 MG TABLET (FP) PO SCH (10:50)
[2022-11-11] MEDS: amLODIPine BESYLATE 10 MG TABLET (FP) PO SCH (10:50)
[2022-11-11] MEDS: LORazepam 1 MG TABLET PO SCH ×3 (10:53→22:21)
[2022-11-11] MEDS: THIAMINE HCL 100 MG TABLET (FP) PO SCH (10:56)
[2022-11-11 21:59] VITALS: RESP 20; TEMP 98.2
[2022-11-11] MEDS ORDERED: ATORVASTATIN CA 20 MG TABLET (FP) PO SCH (22:00)
[2022-11-12] MEDS: HEPARIN NA (PORCINE) 5,000 UNITS/ML 1ML VIAL SQ SCH (05:48)
[2022-11-12] MEDS: LORazepam 1 MG TABLET PO SCH ×2 (05:48→10:19)
[2022-11-12 08:02] VITALS: BP 136/96; PULSE 72
[2022-11-12] MEDS: PANTOPRAZOLE 20 MG TABLET PO SCH (09:38)
[2022-11-12] MEDS: THIAMINE HCL 100 MG TABLET (FP) PO SCH (09:38)
[2022-11-12] MEDS: FOLIC ACID 1 MG TABLET (FP) PO SCH (09:38)
[2022-11-12] MEDS: MULTIVITAMINS (DAILY MVI) TABLET (FP) PO SCH (09:38)
[2022-11-12] MEDS: POTASSIUM CHLORIDE TABS 20 MEQ TABLET.ER (FP) PO SCH (09:38)
[2022-11-12] MEDS: NICOTINE 14 MG/24 HOURS TOPICAL PATCH TD SCH (09:38)
[2022-11-12] MEDS: amLODIPine BESYLATE 10 MG TABLET (FP) PO SCH (09:38)
[2022-11-12 10:01] LABS: EOS % 2.1 % (0-4.5); HEMATOCRIT 35.2 % (35.4-49); HEMOGLOBIN 12.1 GM/dL (11.7-16.9); LYMPH % 17.5 % (8-40); MCHC 34.5 g/dl (32.0-35.9); MEAN CELL VOLUME 98.6 fl (80-96); MEAN PLT VOLUME 8.6 fl (7.5-11.1); MONO % 11.8 % (3.8-10.2); NEUT % 67.6 % (42.8-82.8); PLATELET COUNT 153 10^3/uL (134-434); RBC 3.57 M/mm3 (4.00-5.60); RDW 13.6 % (11.9-15.9); WHITE BLOOD COUNT 6.5 K/mm3 (4.0-10.0)
[2022-11-12 10:26] LABS: POTASSIUM 4.3 mmol/L (3.5-5.1)
[2022-11-12 10:32] LABS: CALCIUM 9.3 mg/dL (8.5-10.1)
[2022-11-12 10:33] LABS: ALBUMIN 3.3 g/dl (3.4-5.0); BLOOD UREA NITROGEN 21.2 mg/dL (7-18); MAGNESIUM 1.6 mg/dL (1.8-2.4)
[2022-11-12 10:36] LABS: CREATININE 1.7 mg/dL (0.55-1.3)
[2022-11-12 10:38] LABS: BILIRUBIN,TOTAL 1.4 mg/dL (0.2-1); TOT PROT 7.7 g/dl (6.4-8.2)
[2022-11-12] MEDS ORDERED: SODIUM CHLORIDE 1,000 ML IV SCH (11:00)
[2022-11-12] MEDS ORDERED: MAGNESIUM OXIDE 400 MG TABLET (FP) PO SCH (11:15)
[2022-11-13] MEDS ORDERED: LORazepam 0.5 MG TABLET PO PRN
[2022-11-13] MEDS ORDERED: LORazepam 0.5 MG TABLET PO SCH (05:00)
[2022-11-14] MEDS ORDERED: LORazepam 0.5 MG TABLET PO ONE (05:00)
== END 2022-11-12 12:11 | disposition left against medical advice (07) | DRG 770 ==
LOC: JER 15:36 → JERBED 20:05 → OBSVTOIN 20:32 → J8W 11-11 01:20
PROVIDERS: ADMIT Student in an Organized Health Care Education/Training Program; ATTEND Nurse Practitioner Acute Care
PROC: HZ2ZZZZ Detoxification Services for Substance Abuse Treatment (ICD-10-PCS; principal; 2022-11-10)
DX: F10.239 Alcohol dependence with withdrawal, unspecified (principal); N17.9 Acute kidney failure, unspecified; E83.42 Hypomagnesemia; E78.5 Hyperlipidemia, unspecified; F17.210 Nicotine dependence, cigarettes, uncomplicated; I10 Essential (primary) hypertension; R11.2 Nausea with vomiting, unspecified; E87.6 Hypokalemia; R00.0 Tachycardia, unspecified; R56.9 Unspecified convulsions
CPT/HCPCS: 0241U-QW; 36415; 80048; 80053; 80076; 80307; 81003; 82248; 83735; 84100; 84484; 85025; 85027; 86704; 86803; 87340; 87517; 93005; 93010; 99285-25; G0378; J1644

== ENCOUNTER 2022-11-29 13:28 | Inpatient (IN) | payer OTHER ==
[2022-11-29 15:09] VITALS: BMI 23.7
[2022-11-29] MEDS ORDERED: NALOXONE HCL 0.4 MG/ML VIAL IM PRN (16:38)
[2022-11-29] MEDS ORDERED: COLLOIDAL OATMEAL 1 BAR EACH TP PRN (16:38)
[2022-11-29] MEDS ORDERED: NALOXONE HCL (KLOXXADO) 8 MG SPRAY NS PRN (16:38)
[2022-11-29] MEDS ORDERED: BISMUTH SUBSALICYLATE 524 MG/30 ML PO PRN (16:38)
[2022-11-29] MEDS ORDERED: NICOTINE 10 MG CARTRIDGE (INHALER) IH PRN (16:38)
[2022-11-29] MEDS ORDERED: ACETAMINOPHEN 325 MG TABLET (FP) PO PRN (16:38)
[2022-11-29] MEDS ORDERED: IBUPROFEN 600 MG TABLET (FP) PO PRN (16:38)
[2022-11-29] MEDS ORDERED: AMMONIUM LACTATE 12% LOTION 225 GM BOTTLE TP PRN (16:38)
[2022-11-29] MEDS ORDERED: MAGNESIUM HYDROX 2400MG/30ML ORAL SUSPENSION 30 ML CUP PO PRN (16:38)
[2022-11-29] MEDS ORDERED: ONDANSETRON *ODT* 4 MG TABLET SL PRN (16:38)
[2022-11-29] MEDS ORDERED: DICYCLOMINE HCL 10 MG CAPSULE PO PRN (16:38)
[2022-11-29] MEDS ORDERED: BENZOCAINE/MENTHOL (CHLORASEPTIC ) LOZENGE MM PRN (16:38)
[2022-11-29] MEDS ORDERED: BENZONATATE 200 MG CAPSULE PO PRN (16:38)
[2022-11-29] MEDS ORDERED: MAG HYDROX/AL HYDROX/SIMETH 30 ML UNIT-DOSE CUP PO PRN (16:38)
[2022-11-29] MEDS ORDERED: IBUPROFEN 400 MG TABLET (FP) PO PRN (16:38)
[2022-11-29] MEDS ORDERED: NICOTINE POLACRILEX 2 MG GUM BUC PRN (16:38)
[2022-11-29] MEDS ORDERED: POLYETHYLENE GLYCOL (HEALTHYLAX) 3350 17 GM PACKET PO PRN (16:38)
[2022-11-29] MEDS ORDERED: LOPERAMIDE HCL 2 MG CAPSULE PO PRN (16:38)
[2022-11-29] MEDS ORDERED: guaiFENesin 600 MG TABLET.ER (FP) PO PRN (16:38)
[2022-11-29] MEDS ORDERED: diazePAM 5 MG TABLET ONE (16:58)
[2022-11-29] MEDS ORDERED: NICOTINE 21 MG/24 HOURS TOPICAL PATCH ONE (16:59)
[2022-11-29] MEDS ORDERED: amLODIPine BESYLATE 5 MG TABLET (FP) ONE (16:59)
[2022-11-29] MEDS: diazePAM 5 MG TABLET PO SCH ×2 (17:16→22:15)
[2022-11-29] MEDS: amLODIPine BESYLATE 10 MG TABLET (FP) PO SCH (17:17)
[2022-11-29] MEDS: NICOTINE 21 MG/24 HOURS TOPICAL PATCH TD SCH (17:17)
[2022-11-29] MEDS: METHOCARBAMOL 500 MG TABLET PO PRN (22:14)
[2022-11-29] MEDS: ATORVASTATIN CA 10 MG TABLET (FP) PO SCH (22:14)
[2022-11-29] MEDS: MELATONIN 5 MG TABLETS PO SCH (22:14)
[2022-11-29] MEDS: THIAMINE HCL 100 MG TABLET (FP) PO SCH (22:15)
[2022-11-30] MEDS: diazePAM 5 MG TABLET PO SCH ×4 (05:36→22:55)
[2022-11-30 06:25] VITALS: RESP 16
[2022-11-30] MEDS: METHOCARBAMOL 500 MG TABLET PO PRN (09:11)
[2022-11-30 09:29] VITALS: BP 115/79; PULSE 98; TEMP 97.3
[2022-11-30 09:41] LABS: HEMATOCRIT 36.4 % (35.4-49); HEMOGLOBIN 12.5 GM/dL (11.7-16.9); MCH 33.7 pg (25.7-33.7); MCHC 34.4 g/dl (32.0-35.9); MEAN CELL VOLUME 97.8 fl (80-96); MEAN PLT VOLUME 8.7 fl (7.5-11.1); PLATELET COUNT 156 10^3/uL (134-434); RBC 3.72 M/mm3 (4.00-5.60); RDW 13.4 % (11.9-15.9)
[2022-11-30 09:54] LABS: POTASSIUM 3.7 mmol/L (3.5-5.1)
[2022-11-30 09:56] LABS: BLOOD UREA NITROGEN 22.1 mg/dL (7-18); CALCIUM 9.3 mg/dL (8.5-10.1)
[2022-11-30 09:57] LABS: ALBUMIN 3.7 g/dl (3.4-5.0)
[2022-11-30 10:00] LABS: CREATININE 2.1 mg/dL (0.55-1.3)
[2022-11-30] MEDS ORDERED: PRENATAL VITAMINS W/ FOLIC ACID TABLET (FP) PO SCH (10:00)
[2022-11-30 10:01] LABS: BILIRUBIN,TOTAL 1.6 mg/dL (0.2-1)
[2022-11-30 10:02] LABS: TOT PROT 8.5 g/dl (6.4-8.2)
[2022-11-30] MEDS: NICOTINE 21 MG/24 HOURS TOPICAL PATCH TD SCH (10:02)
[2022-11-30] MEDS: amLODIPine BESYLATE 10 MG TABLET (FP) PO SCH (10:02)
[2022-11-30] MEDS ORDERED: LORazepam 2 MG/ML SDV VIAL IM ONE (12:02)
[2022-11-30] MEDS: ATORVASTATIN CA 10 MG TABLET (FP) PO SCH (22:54)
[2022-11-30] MEDS: THIAMINE HCL 100 MG TABLET (FP) PO SCH (22:55)
[2022-11-30] MEDS: MELATONIN 5 MG TABLETS PO SCH (22:55)
[2022-12-01] MEDS ORDERED: diazePAM 5 MG TABLET PO SCH (06:00)
[2022-12-02] MEDS ORDERED: diazePAM 5 MG TABLET PO SCH (06:00)
[2022-12-03] MEDS ORDERED: diazePAM 5 MG TABLET PO ONE (06:00)
== END 2022-11-30 23:37 | disposition short-term general hospital (02) | DRG 774 ==
LOC: YASAS 13:28 → Y3N 16:44
PROVIDERS: ADMIT Allergy & Immunology; ATTEND Surgery
PROC: HZ2ZZZZ Detoxification Services for Substance Abuse Treatment (ICD-10-PCS; principal; 2022-11-29)
DX: F10.230 Alcohol dependence with withdrawal, uncomplicated (principal); F14.10 Cocaine abuse, uncomplicated; F17.210 Nicotine dependence, cigarettes, uncomplicated; F19.24 Other psychoactive substance dependence with psychoactive substance-induced mood disorder; F42.9 Obsessive-compulsive disorder, unspecified; F32.A Depression, unspecified; G40.909 Epilepsy, unspecified, not intractable, without status epilepticus; G47.00 Insomnia, unspecified; E78.5 Hyperlipidemia, unspecified; I10 Essential (primary) hypertension; N17.9 Acute kidney failure, unspecified
CPT/HCPCS: 36415; 80053; 82140; 82962; 85027; 86780

== ENCOUNTER 2022-11-30 12:39 | Inpatient (IN) | payer OTHER ==
[2022-11-30 13:25] LABS: BASO % 0.6 % (0-2.0); HEMATOCRIT 36.6 % (35.4-49); HEMOGLOBIN 12.6 GM/dL (11.7-16.9); LYMPH % 14.9 % (8-40); MCH 33.6 pg (25.7-33.7); MCHC 34.3 g/dl (32.0-35.9); MEAN CELL VOLUME 97.9 fl (80-96); MEAN PLT VOLUME 8.1 fl (7.5-11.1); MONO % 9.6 % (3.8-10.2); NEUT % 72.9 % (42.8-82.8); PLATELET COUNT 146 10^3/uL (134-434); RBC 3.74 M/mm3 (4.00-5.60); RDW 13.5 % (11.9-15.9); VENOUS BASE EXCESS 4.9 mmol/L (-2-2); VENOUS O2 SATURATION 43.5 % (70-80); VENOUS PCO2 42.2 mmHg (38-52); VENOUS PH 7.459 (7.310-7.410); WHITE BLOOD COUNT 7.5 K/mm3 (4.0-10.0)
[2022-11-30 13:33] LABS: INR 1.12 (0.83-1.09)
[2022-11-30 13:36] LABS: ACTIVATED PTT 30.4 SECONDS (25.2-36.5)
[2022-11-30 14:26] LABS: ALBUMIN 3.6 g/dl (3.4-5.0); CALCIUM 9.7 mg/dL (8.5-10.1)
[2022-11-30 14:31] LABS: BILIRUBIN,TOTAL 1.4 mg/dL (0.2-1); TOT PROT 8.5 g/dl (6.4-8.2)
[2022-11-30] MEDS ORDERED: MAGNESIUM SULF 50% (8.12 MEQ/2 ML-1 GM VIAL) IVPB ONE (14:38)
[2022-11-30] MEDS ORDERED: LACTATED RINGERS SOLUTION 1000 ML INFUS.BAG IV ONE (14:39)
[2022-11-30] MEDS ORDERED: MAGNESIUM SULF 50% (8.12 MEQ/2 ML-1 GM VIAL) ONE (14:45)
[2022-11-30 15:56] LABS: POTASSIUM 3.6 mmol/L (3.5-5.1)
[2022-11-30 15:57] LABS: CALCIUM 9.5 mg/dL (8.5-10.1)
[2022-11-30 15:58] LABS: BLOOD UREA NITROGEN 23.3 mg/dL (7-18)
[2022-11-30 16:01] LABS: CREATININE 1.9 mg/dL (0.55-1.3)
[2022-11-30] MEDS ORDERED: LORazepam 2 MG TABLET PO SCH (17:00)
[2022-11-30] MEDS ORDERED: LACTATED RINGERS SOLUTION 1,000 ML/1,000 ML INFUS.BAG IV SCH (18:15)
[2022-11-30] MEDS ORDERED: LORazepam 1 MG TABLET ONE (19:03)
[2022-11-30] MEDS: LORazepam 1 MG TABLET PO SCH (22:57)
[2022-11-30] MEDS: HEPARIN NA (PORCINE) 5,000 UNITS/ML 1ML VIAL SQ SCH (22:59)
[2022-11-30 23:27] LABS: EPI CELLS 2 /uL (0-25.1); HYALINE CASTS 0 /uL (0-3.1); URINE APPEARANCE CLEAR; URINE BACTERIA 2 /uL (0-1359); URINE BILIRUBIN NEGATIVE (NEGATIVE); URINE COLOR YELLOW; URINE GLUCOSE (UA) NEGATIVE (NEGATIVE); URINE KETONE NEGATIVE (NEGATIVE); URINE LEUK ESTERASE NEGATIVE (NEGATIVE); URINE NITRITE NEGATIVE (NEGATIVE); URINE PROTEIN 3+ (NEGATIVE); URINE RBC 5 /uL (0-23.9); URINE WBC 2 /uL (0-25.8)
[2022-11-30 23:51] VITALS: RESP 18; BMI 22.4
[2022-12-01] MEDS: LORazepam 1 MG TABLET PO PRN ×2 (01:02→08:36)
[2022-12-01] MEDS: LORazepam 1 MG TABLET PO SCH (04:45)
[2022-12-01 08:51] LABS: BASO % 0.8 % (0-2.0); EOS % 2.9 % (0-4.5); HEMATOCRIT 32.8 % (35.4-49); HEMOGLOBIN 11.1 GM/dL (11.7-16.9); LYMPH % 18.2 % (8-40); MCH 33.6 pg (25.7-33.7); MCHC 33.8 g/dl (32.0-35.9); MEAN CELL VOLUME 99.2 fl (80-96); MONO % 9.7 % (3.8-10.2); NEUT % 68.4 % (42.8-82.8); PLATELET COUNT 133 10^3/uL (134-434); RBC 3.31 M/mm3 (4.00-5.60); RDW 12.9 % (11.9-15.9); WHITE BLOOD COUNT 6.1 K/mm3 (4.0-10.0)
[2022-12-01 08:58] LABS: POTASSIUM 3.6 mmol/L (3.5-5.1)
[2022-12-01 09:01] LABS: ALBUMIN 3.4 g/dl (3.4-5.0); CALCIUM 9.2 mg/dL (8.5-10.1)
[2022-12-01 09:02] LABS: BLOOD UREA NITROGEN 22.1 mg/dL (7-18); MAGNESIUM 1.4 mg/dL (1.8-2.4)
[2022-12-01 09:05] LABS: CREATININE 1.6 mg/dL (0.55-1.3); PHOSPHOROUS 3.6 mg/dL (2.5-4.9)
[2022-12-01 09:06] LABS: BILIRUBIN,TOTAL 1.2 mg/dL (0.2-1); TOT PROT 7.7 g/dl (6.4-8.2)
[2022-12-01] MEDS: HEPARIN NA (PORCINE) 5,000 UNITS/ML 1ML VIAL SQ SCH (09:26)
[2022-12-01 09:31] VITALS: BP 139/102; PULSE 84; TEMP 98.2
[2022-12-01] MEDS ORDERED: amLODIPine BESYLATE 10 MG TABLET (FP) PO SCH (10:00)
[2022-12-02] MEDS ORDERED: LORazepam 1 MG TABLET PO SCH (05:00)
[2022-12-03] MEDS ORDERED: LORazepam 0.5 MG TABLET PO PRN
[2022-12-03] MEDS ORDERED: LORazepam 0.5 MG TABLET PO SCH (05:00)
[2022-12-04] MEDS ORDERED: LORazepam 0.5 MG TABLET PO ONE (05:00)
== END 2022-12-01 10:01 | disposition left against medical advice (07) | DRG 770 ==
LOC: JER 12:39 → JERBED 17:04 → OBSVTOIN 18:12 → J5S 21:48
PROVIDERS: ADMIT Internal Medicine
PROC: HZ2ZZZZ Detoxification Services for Substance Abuse Treatment (ICD-10-PCS; principal; 2022-11-30)
DX: F10.139 Alcohol abuse with withdrawal, unspecified (principal); R56.9 Unspecified convulsions; E78.5 Hyperlipidemia, unspecified; I10 Essential (primary) hypertension; K70.10 Alcoholic hepatitis without ascites; N17.9 Acute kidney failure, unspecified; E86.0 Dehydration; I12.9 Hypertensive chronic kidney disease with stage 1 through stage 4 chronic kidney disease, or unspecified chronic kidney disease; N18.9 Chronic kidney disease, unspecified
CPT/HCPCS: 36415; 70450-TC; 71045-TC-FY; 80048; 80053; 81003; 82436; 82570; 82803; 83605; 83735; 83935; 84100; 84133; 84156; 84300; 84484; 84540; 85025; 85610; 85730; 87635; 99285-25; G0378; J1644

== ENCOUNTER 2023-01-18 21:07 | Inpatient (IN) | payer OTHER ==
[2023-01-18 22:30] VITALS: BMI 23.6
[2023-01-18] MEDS ORDERED: guaiFENesin 600 MG TABLET.ER (FP) PO PRN (23:03)
[2023-01-18] MEDS ORDERED: MAG HYDROX/AL HYDROX/SIMETH 30 ML UNIT-DOSE CUP PO PRN (23:03)
[2023-01-18] MEDS ORDERED: BENZONATATE 200 MG CAPSULE PO PRN (23:03)
[2023-01-18] MEDS ORDERED: BENZOCAINE/MENTHOL (CHLORASEPTIC ) LOZENGE MM PRN (23:03)
[2023-01-18] MEDS ORDERED: DICYCLOMINE HCL 10 MG CAPSULE PO PRN (23:03)
[2023-01-18] MEDS ORDERED: NALOXONE HCL (KLOXXADO) 8 MG SPRAY NS PRN (23:03)
[2023-01-18] MEDS ORDERED: NICOTINE POLACRILEX 2 MG GUM BUC PRN (23:03)
[2023-01-18] MEDS ORDERED: MAGNESIUM HYDROX 2400MG/30ML ORAL SUSPENSION 30 ML CUP PO PRN (23:03)
[2023-01-18] MEDS ORDERED: LOPERAMIDE HCL 2 MG CAPSULE PO PRN (23:03)
[2023-01-18] MEDS ORDERED: NALOXONE HCL 0.4 MG/ML VIAL IM PRN (23:03)
[2023-01-18] MEDS ORDERED: BISMUTH SUBSALICYLATE 524 MG/30 ML PO PRN (23:03)
[2023-01-18] MEDS ORDERED: POLYETHYLENE GLYCOL (HEALTHYLAX) 3350 17 GM PACKET PO PRN (23:03)
[2023-01-18] MEDS ORDERED: ONDANSETRON *ODT* 4 MG TABLET SL PRN (23:03)
[2023-01-18] MEDS ORDERED: IBUPROFEN 400 MG TABLET (FP) PO PRN (23:03)
[2023-01-18] MEDS ORDERED: IBUPROFEN 600 MG TABLET (FP) PO PRN (23:03)
[2023-01-18] MEDS ORDERED: LORazepam 1 MG TABLET PO PRN (23:06)
[2023-01-18] MEDS ORDERED: cloNIDine HCL 0.1 MG TABLET PO ONE (23:06)
[2023-01-19] MEDS ORDERED: cloNIDine HCL 0.1 MG TABLET ONE (00:32)
[2023-01-19] MEDS ORDERED: LORazepam 2 MG TABLET ONE (00:33)
[2023-01-19] MEDS: LORazepam 2 MG TABLET PO SCH ×5 (00:34→22:11)
[2023-01-19] MEDS: PRENATAL VITAMINS W/ FOLIC ACID TABLET (FP) PO SCH (10:17)
[2023-01-19] MEDS: NICOTINE 14 MG/24 HOURS TOPICAL PATCH TD SCH (10:18)
[2023-01-19] MEDS: amLODIPine BESYLATE 10 MG TABLET (FP) PO SCH (11:34)
[2023-01-19 12:14] LABS: HEMATOCRIT 34.4 % (35.4-49); HEMOGLOBIN 11.5 GM/dL (11.7-16.9); MCH 32.9 pg (25.7-33.7); MCHC 33.5 g/dl (32.0-35.9); MEAN CELL VOLUME 98.2 fl (80-96); MEAN PLT VOLUME 7.5 fl (7.5-11.1); PLATELET COUNT 312 10^3/uL (134-434); RDW 13.8 % (11.9-15.9); WHITE BLOOD COUNT 5.6 K/mm3 (4.0-10.0)
[2023-01-19 12:21] LABS: POTASSIUM 3.6 mmol/L (3.5-5.1)
[2023-01-19 12:48] LABS: BLOOD UREA NITROGEN 13.3 mg/dL (7-18)
[2023-01-19 12:49] LABS: CALCIUM 9.1 mg/dL (8.5-10.1)
[2023-01-19 12:54] LABS: CREATININE 1.2 mg/dL (0.55-1.3)
[2023-01-19 12:55] LABS: BILIRUBIN,TOTAL 0.8 mg/dL (0.2-1); TOT PROT 7.4 g/dl (6.4-8.2)
[2023-01-19] MEDS: ACETAMINOPHEN 325 MG TABLET (FP) PO PRN (17:34)
[2023-01-19] MEDS: METHOCARBAMOL 500 MG TABLET PO PRN (21:18)
[2023-01-19] MEDS: ATORVASTATIN CA 10 MG TABLET (FP) PO SCH (22:10)
[2023-01-19] MEDS: MELATONIN 5 MG TABLETS PO SCH (22:11)
[2023-01-19] MEDS: THIAMINE HCL 100 MG TABLET (FP) PO SCH (22:11)
[2023-01-20] MEDS: LORazepam 1 MG TABLET PO SCH ×4 (05:23→22:09)
[2023-01-20] MEDS: METHOCARBAMOL 500 MG TABLET PO PRN ×2 (05:26→22:10)
[2023-01-20] MEDS: PRENATAL VITAMINS W/ FOLIC ACID TABLET (FP) PO SCH (10:09)
[2023-01-20] MEDS: amLODIPine BESYLATE 10 MG TABLET (FP) PO SCH (10:09)
[2023-01-20] MEDS: NICOTINE 14 MG/24 HOURS TOPICAL PATCH TD SCH (10:10)
[2023-01-20] MEDS: ATORVASTATIN CA 10 MG TABLET (FP) PO SCH (22:09)
[2023-01-20] MEDS: MELATONIN 5 MG TABLETS PO SCH (22:09)
[2023-01-20] MEDS: THIAMINE HCL 100 MG TABLET (FP) PO SCH (22:09)
[2023-01-21] MEDS ORDERED: LORazepam 0.5 MG TABLET PO PRN
[2023-01-21] MEDS: LORazepam 0.5 MG TABLET PO SCH ×4 (05:32→22:02)
[2023-01-21] MEDS: ACETAMINOPHEN 325 MG TABLET (FP) PO PRN (05:33)
[2023-01-21] MEDS: amLODIPine BESYLATE 10 MG TABLET (FP) PO SCH (10:14)
[2023-01-21] MEDS: PRENATAL VITAMINS W/ FOLIC ACID TABLET (FP) PO SCH (10:14)
[2023-01-21] MEDS: NICOTINE 14 MG/24 HOURS TOPICAL PATCH TD SCH (10:33)
[2023-01-21] MEDS: MELATONIN 5 MG TABLETS PO SCH (22:00)
[2023-01-21] MEDS: THIAMINE HCL 100 MG TABLET (FP) PO SCH (22:01)
[2023-01-21] MEDS: ATORVASTATIN CA 10 MG TABLET (FP) PO SCH (22:01)
[2023-01-21] MEDS: METHOCARBAMOL 500 MG TABLET PO PRN (22:01)
[2023-01-21] MEDS ORDERED: cloNIDine HCL 0.1 MG TABLET PO ONE (23:42)
[2023-01-22] MEDS ORDERED: LORazepam 0.5 MG TABLET PO ONE (05:00)
[2023-01-22 06:27] VITALS: TEMP 98.2
[2023-01-22] MEDS: amLODIPine BESYLATE 10 MG TABLET (FP) PO SCH (09:06)
[2023-01-22] MEDS: NICOTINE 14 MG/24 HOURS TOPICAL PATCH TD SCH (09:07)
[2023-01-22] MEDS: PRENATAL VITAMINS W/ FOLIC ACID TABLET (FP) PO SCH (09:07)
[2023-01-22 09:13] VITALS: BP 155/101; PULSE 20; RESP 70
== END 2023-01-22 09:30 | disposition home or self-care (01) | DRG 775 ==
LOC: YASAS 21:07 → Y3N 23:33
PROVIDERS: ADMIT Allergy & Immunology; ATTEND Surgery
PROC: HZ2ZZZZ Detoxification Services for Substance Abuse Treatment (ICD-10-PCS; principal; 2023-01-18)
DX: F10.230 Alcohol dependence with withdrawal, uncomplicated (principal); F17.210 Nicotine dependence, cigarettes, uncomplicated; E78.5 Hyperlipidemia, unspecified; I10 Essential (primary) hypertension; R76.11 Nonspecific reaction to tuberculin skin test without active tuberculosis; Z86.69 Personal history of other diseases of the nervous system and sense organs
CPT/HCPCS: 36415; 80053; 85027; 86780; 87635

== ENCOUNTER 2023-07-31 10:37 | Inpatient (IN) | payer OTHER ==
[2023-07-31 11:02] VITALS: BMI 22.8
[2023-07-31] MEDS ORDERED: IBUPROFEN 600 MG TABLET (FP) PO PRN (11:32)
[2023-07-31] MEDS ORDERED: ONDANSETRON *ODT* 4 MG TABLET SL PRN (11:32)
[2023-07-31] MEDS ORDERED: POLYETHYLENE GLYCOL (HEALTHYLAX) 3350 17 GM PACKET PO PRN (11:32)
[2023-07-31] MEDS ORDERED: guaiFENesin 600 MG TABLET.ER (FP) PO PRN (11:32)
[2023-07-31] MEDS ORDERED: LOPERAMIDE HCL 2 MG CAPSULE PO PRN (11:32)
[2023-07-31] MEDS ORDERED: DICYCLOMINE HCL 10 MG CAPSULE PO PRN (11:32)
[2023-07-31] MEDS ORDERED: NALOXONE HCL 0.4 MG/ML VIAL IM PRN (11:32)
[2023-07-31] MEDS ORDERED: NALOXONE HCL (KLOXXADO) 8 MG SPRAY NS PRN (11:32)
[2023-07-31] MEDS ORDERED: BENZONATATE 200 MG CAPSULE PO PRN (11:32)
[2023-07-31] MEDS ORDERED: MAG HYDROX/AL HYDROX/SIMETH 30 ML UNIT-DOSE CUP PO PRN (11:32)
[2023-07-31] MEDS ORDERED: BENZOCAINE/MENTHOL (CHLORASEPTIC ) LOZENGE MM PRN (11:32)
[2023-07-31] MEDS ORDERED: cloNIDine HCL 0.1 MG TABLET ONE (11:47)
[2023-07-31] MEDS: cloNIDine HCL 0.1 MG TABLET PO ONE (11:50)
[2023-07-31] MEDS: chlordiazePOXIDE HCL 25 MG CAPSULE PO PRN (12:56)
[2023-07-31] MEDS: METHOCARBAMOL 500 MG TABLET PO PRN (12:57)
[2023-07-31] MEDS ORDERED: METHOCARBAMOL 500 MG TABLET ONE (12:58)
[2023-07-31] MEDS ORDERED: chlordiazePOXIDE HCL 25 MG CAPSULE ONE (12:58)
[2023-07-31] MEDS: chlordiazePOXIDE HCL 25 MG CAPSULE PO SCH (17:43)
[2023-07-31] MEDS: MELATONIN 5 MG TABLETS PO SCH (22:28)
[2023-07-31] MEDS: THIAMINE HCL 100 MG TABLET (FP) PO SCH (22:29)
[2023-07-31] MEDS: ATORVASTATIN CA 10 MG TABLET (FP) PO SCH (22:37)
[2023-08-01] MEDS: amLODIPine BESYLATE 10 MG TABLET (FP) PO SCH (10:11)
[2023-08-01] MEDS: PRENATAL VITAMINS W/ FOLIC ACID TABLET (FP) PO SCH (10:11)
[2023-08-01] MEDS: NICOTINE 14 MG/24 HOURS TOPICAL PATCH TD SCH (10:13)
[2023-08-01 10:48] LABS: HEMATOCRIT 31.5 % (35.4-49); HEMOGLOBIN 10.6 GM/dL (11.7-16.9); MCH 33.8 pg (25.7-33.7); MCHC 33.7 g/dl (32.0-35.9); MEAN CELL VOLUME 100.3 fl (80-96); MEAN PLT VOLUME 8.5 fl (7.5-11.1); PLATELET COUNT 140 10^3/uL (134-434); RBC 3.14 M/mm3 (4.00-5.60); RDW 14.5 % (11.9-15.9); WHITE BLOOD COUNT 5.6 K/mm3 (4.0-10.0)
[2023-08-01 11:09] LABS: CHLORIDE 101 mmol/L (98-107); POTASSIUM 3.6 mmol/L (3.5-5.1); SODIUM 141 mmol/L (136-145)
[2023-08-01 11:14] LABS: ALBUMIN 2.7 g/dl (3.4-5.0); ANION GAP 11 mmol/L (4-13); BLOOD UREA NITROGEN 19.9 mg/dL (7-18); CALCIUM 8.6 mg/dL (8.5-10.1); CO2 29 mmol/L (21-32)
[2023-08-01 11:15] LABS: GLUCOSE,RANDOM 128 mg/dL (74-106)
[2023-08-01 11:17] LABS: CREATININE 1.9 mg/dL (0.55-1.3); SGOT/AST 152 U/L (15-37); SGPT/ALT 58 U/L (13-61)
[2023-08-01 11:21] LABS: ALK PHOS 127 U/L (45-117)
[2023-08-01] MEDS: ACETAMINOPHEN 325 MG TABLET (FP) PO PRN (17:23)
[2023-08-01] MEDS: MAGNESIUM HYDROX 2400MG/30ML ORAL SUSPENSION 30 ML CUP PO PRN (20:30)
[2023-08-02] MEDS: chlordiazePOXIDE HCL 25 MG CAPSULE PO SCH (04:52)
[2023-08-02] MEDS: NICOTINE POLACRILEX 2 MG LOZENGE BC PRN (10:31)
[2023-08-02 11:52] LABS: HEMATOCRIT 29.6 % (35.4-49); MCHC 33.9 g/dl (32.0-35.9); MEAN CELL VOLUME 100.2 fl (80-96); MEAN PLT VOLUME 9.2 fl (7.5-11.1); PLATELET COUNT 128 10^3/uL (134-434); RBC 2.95 M/mm3 (4.00-5.60); WHITE BLOOD COUNT 6.1 K/mm3 (4.0-10.0)
[2023-08-02 12:31] LABS: ALBUMIN 2.9 g/dl (3.4-5.0); CALCIUM 8.2 mg/dL (8.5-10.1)
[2023-08-02 12:32] LABS: BLOOD UREA NITROGEN 31.2 mg/dL (7-18)
[2023-08-02 12:37] LABS: BILIRUBIN,TOTAL 0.8 mg/dL (0.2-1); TOT PROT 6.9 g/dl (6.4-8.2)
[2023-08-02] MEDS: FAMOTIDINE 20 MG TABLET PO SCH (15:22)
[2023-08-02] MEDS: FERROUS SO4 325 MG TABLET (FP) PO SCH (17:09)
[2023-08-03] MEDS ORDERED: chlordiazePOXIDE HCL 10 MG CAPSULE PO PRN
[2023-08-03] MEDS: chlordiazePOXIDE HCL 10 MG CAPSULE PO SCH (05:09)
[2023-08-03] MEDS ORDERED: LORazepam 1 MG TABLET PO PRN (08:15)
[2023-08-03] MEDS: LORazepam 1 MG TABLET PO SCH (10:12)
[2023-08-03] MEDS: BISMUTH SUBSALICYLATE 524 MG/30 ML PO PRN (10:15)
[2023-08-03 13:06] LABS: POTASSIUM 3.7 mmol/L (3.5-5.1)
[2023-08-03 13:11] LABS: CALCIUM 8.6 mg/dL (8.5-10.1)
[2023-08-03 13:12] LABS: ALBUMIN 2.9 g/dl (3.4-5.0); BLOOD UREA NITROGEN 38.9 mg/dL (7-18)
[2023-08-03 13:13] LABS: CREATININE 2.4 mg/dL (0.55-1.3)
[2023-08-03 13:15] LABS: TOT PROT 6.9 g/dl (6.4-8.2)
[2023-08-03 13:16] LABS: BILIRUBIN,TOTAL 0.7 mg/dL (0.2-1)
[2023-08-03] MEDS: IBUPROFEN 400 MG TABLET (FP) PO PRN (17:11)
[2023-08-03] MEDS: hydrOXYzine PAMOATE 25 MG CAPSULE (FP) PO PRN (20:43)
[2023-08-04] MEDS ORDERED: chlordiazePOXIDE HCL 10 MG CAPSULE PO SCH (05:00)
[2023-08-04] MEDS: LORazepam 0.5 MG TABLET PO SCH (05:25)
[2023-08-04 06:13] VITALS: RESP 16
[2023-08-04 09:57] VITALS: BP 124/88; PULSE 74; TEMP 97.3
[2023-08-04 10:58] LABS: POTASSIUM 4.1 mmol/L (3.5-5.1)
[2023-08-04 11:02] LABS: ALBUMIN 3.1 g/dl (3.4-5.0); BLOOD UREA NITROGEN 42.9 mg/dL (7-18)
[2023-08-04 11:04] LABS: CALCIUM 9.3 mg/dL (8.5-10.1)
[2023-08-04 11:06] LABS: CREATININE 2.4 mg/dL (0.55-1.3); PHOSPHOROUS 4.3 mg/dL (2.5-4.9)
[2023-08-05] MEDS ORDERED: LORazepam 0.5 MG TABLET PO ONE (05:00)
[2023-08-05] MEDS ORDERED: chlordiazePOXIDE HCL 10 MG CAPSULE PO ONE (05:00)
== END 2023-08-04 11:19 | disposition home or self-care (01) | DRG 774 ==
LOC: YASAS 10:37 → Y6N 12:12
PROVIDERS: ADMIT Allergy & Immunology; ATTEND Allergy & Immunology
PROC: HZ2ZZZZ Detoxification Services for Substance Abuse Treatment (ICD-10-PCS; principal; 2023-07-31)
DX: F10.230 Alcohol dependence with withdrawal, uncomplicated (principal); F14.10 Cocaine abuse, uncomplicated; F17.210 Nicotine dependence, cigarettes, uncomplicated; D50.9 Iron deficiency anemia, unspecified; E78.2 Mixed hyperlipidemia; I12.9 Hypertensive chronic kidney disease with stage 1 through stage 4 chronic kidney disease, or unspecified chronic kidney disease; N18.32 Chronic kidney disease, stage 3b; K21.9 Gastro-esophageal reflux disease without esophagitis; R74.8 Abnormal levels of other serum enzymes; R76.11 Nonspecific reaction to tuberculin skin test without active tuberculosis; R79.89 Other specified abnormal findings of blood chemistry
CPT/HCPCS: 36415; 71046-TC-FY; 80053; 80069; 80307; 82607; 82746; 83540; 83550; 85027; 85045; 86780; 87635

== ENCOUNTER 2023-09-04 22:08 | Inpatient (IN) | payer OTHER ==
[2023-09-04 23:37] VITALS: BMI 22.8
[2023-09-05] MEDS ORDERED: NALOXONE HCL 0.4 MG/ML VIAL IM PRN (00:31)
[2023-09-05] MEDS ORDERED: IBUPROFEN 600 MG TABLET (FP) PO PRN (00:31)
[2023-09-05] MEDS ORDERED: NALOXONE HCL (KLOXXADO) 8 MG SPRAY NS PRN (00:31)
[2023-09-05] MEDS ORDERED: IBUPROFEN 400 MG TABLET (FP) PO PRN (00:31)
[2023-09-05] MEDS ORDERED: guaiFENesin 600 MG TABLET.ER (FP) PO PRN (00:31)
[2023-09-05] MEDS ORDERED: BENZOCAINE/MENTHOL (CHLORASEPTIC ) LOZENGE MM PRN (00:31)
[2023-09-05] MEDS ORDERED: BENZONATATE 200 MG CAPSULE PO PRN (00:31)
[2023-09-05] MEDS ORDERED: MAG HYDROX/AL HYDROX/SIMETH 30 ML UNIT-DOSE CUP PO PRN (00:31)
[2023-09-05] MEDS ORDERED: POLYETHYLENE GLYCOL (HEALTHYLAX) 3350 17 GM PACKET PO PRN (00:31)
[2023-09-05] MEDS ORDERED: MAGNESIUM HYDROX 2400MG/30ML ORAL SUSPENSION 30 ML CUP PO PRN (00:31)
[2023-09-05] MEDS ORDERED: NICOTINE POLACRILEX 2 MG GUM BUC PRN (00:31)
[2023-09-05] MEDS: FERROUS SO4 325 MG TABLET (FP) PO SCH (09:13)
[2023-09-05] MEDS: PRENATAL VITAMINS W/ FOLIC ACID TABLET (FP) PO SCH (09:55)
[2023-09-05] MEDS: LISINOPRIL 5 MG TABLET PO SCH (09:55)
[2023-09-05] MEDS: amLODIPine BESYLATE 5 MG TABLET (FP) PO SCH (09:55)
[2023-09-05] MEDS: NICOTINE 14 MG/24 HOURS TOPICAL PATCH TD SCH (09:57)
[2023-09-05] MEDS: BISMUTH SUBSALICYLATE 524 MG/30 ML PO PRN (12:24)
[2023-09-05] MEDS: LISINOPRIL 10 MG TABLET PO ONE (17:18)
[2023-09-05] MEDS: LOPERAMIDE HCL 2 MG CAPSULE PO PRN (19:30)
[2023-09-05] MEDS: ONDANSETRON *ODT* 4 MG TABLET SL PRN (19:32)
[2023-09-05] MEDS: MELATONIN 5 MG TABLETS PO SCH (22:05)
[2023-09-05] MEDS: THIAMINE HCL 100 MG TABLET (FP) PO SCH (22:05)
[2023-09-06] MEDS: METHOCARBAMOL 500 MG TABLET PO PRN (05:31)
[2023-09-06] MEDS: ACETAMINOPHEN 325 MG TABLET (FP) PO PRN (05:32)
[2023-09-06 12:17] LABS: POTASSIUM 4.5 mmol/L (3.5-5.1)
[2023-09-06 12:18] LABS: HEMATOCRIT 30.6 % (35.4-49); HEMOGLOBIN 10.3 GM/dL (11.7-16.9); MCH 33.9 pg (25.7-33.7); MCHC 33.5 g/dl (32.0-35.9); PLATELET COUNT 137 10^3/uL (134-434); RBC 3.03 M/mm3 (4.00-5.60); RDW 14.3 % (11.9-15.9); WHITE BLOOD COUNT 5.1 K/mm3 (4.0-10.0)
[2023-09-06 12:22] LABS: ALBUMIN 2.7 g/dl (3.4-5.0); BLOOD UREA NITROGEN 17.6 mg/dL (7-18); CALCIUM 8.7 mg/dL (8.5-10.1)
[2023-09-06 12:25] LABS: BILIRUBIN,TOTAL 0.9 mg/dL (0.2-1); CREATININE 1.7 mg/dL (0.55-1.3); TOT PROT 7.1 g/dl (6.4-8.2)
[2023-09-06] MEDS ORDERED: LORazepam 1 MG TABLET PO PRN (13:10)
[2023-09-06] MEDS: LACTULOSE 20 GM/30 ML UDC (FOR ORAL USE ONLY) PO SCH (14:12)
[2023-09-06] MEDS: LORazepam 2 MG TABLET PO SCH (17:20)
[2023-09-07 09:15] VITALS: BP 143/96; PULSE 85; RESP 16; TEMP 97.6
[2023-09-07 12:31] LABS: HEMATOCRIT 31.4 % (35.4-49); HEMOGLOBIN 10.5 GM/dL (11.7-16.9); MCH 34.1 pg (25.7-33.7); MCHC 33.5 g/dl (32.0-35.9); MEAN CELL VOLUME 101.9 fl (80-96); MEAN PLT VOLUME 9.9 fl (7.5-11.1); PLATELET COUNT 116 10^3/uL (134-434); RBC 3.08 M/mm3 (4.00-5.60); RDW 14.4 % (11.9-15.9); WHITE BLOOD COUNT 5.5 K/mm3 (4.0-10.0)
[2023-09-07 12:48] LABS: POTASSIUM 4.7 mmol/L (3.5-5.1)
[2023-09-07 13:09] LABS: ALBUMIN 2.8 g/dl (3.4-5.0); BLOOD UREA NITROGEN 18.4 mg/dL (7-18); CALCIUM 9.4 mg/dL (8.5-10.1)
[2023-09-07 13:11] LABS: CREATININE 2.1 mg/dL (0.55-1.3)
[2023-09-07 13:13] LABS: BILIRUBIN,TOTAL 0.7 mg/dL (0.2-1)
[2023-09-08] MEDS ORDERED: LORazepam 1 MG TABLET PO SCH (05:00)
[2023-09-09] MEDS ORDERED: LORazepam 0.5 MG TABLET PO PRN
[2023-09-09] MEDS ORDERED: LORazepam 0.5 MG TABLET PO SCH (05:00)
[2023-09-10] MEDS ORDERED: LORazepam 0.5 MG TABLET PO ONE (05:00)
== END 2023-09-07 10:38 | disposition home or self-care (01) | DRG 775 ==
LOC: YASAS 22:08 → Y3N 09-05 03:09
PROVIDERS: ADMIT Allergy & Immunology; ATTEND Allergy & Immunology
PROC: HZ2ZZZZ Detoxification Services for Substance Abuse Treatment (ICD-10-PCS; principal; 2023-09-05)
DX: F10.230 Alcohol dependence with withdrawal, uncomplicated (principal); F17.210 Nicotine dependence, cigarettes, uncomplicated; D50.9 Iron deficiency anemia, unspecified; I12.9 Hypertensive chronic kidney disease with stage 1 through stage 4 chronic kidney disease, or unspecified chronic kidney disease; N18.32 Chronic kidney disease, stage 3b; K21.9 Gastro-esophageal reflux disease without esophagitis; R79.89 Other specified abnormal findings of blood chemistry
CPT/HCPCS: 0241U-QW; 36415; 80053; 80305; 80307; 82140; 82607; 82746; 83540; 83550; 83690; 85025; 85027; 85045; 86780; 87811; 93005; 93010; Q0162

== ENCOUNTER 2023-10-10 23:24 | Inpatient (IN) | payer OTHER ==
[2023-10-10 23:49] VITALS: BMI 23.6
[2023-10-11] MEDS ORDERED: chlordiazePOXIDE HCL 25 MG CAPSULE PO PRN (00:26)
[2023-10-11] MEDS ORDERED: IBUPROFEN 400 MG TABLET (FP) PO PRN (00:28)
[2023-10-11] MEDS ORDERED: BENZONATATE 200 MG CAPSULE PO PRN (00:28)
[2023-10-11] MEDS ORDERED: IBUPROFEN 600 MG TABLET (FP) PO PRN (00:28)
[2023-10-11] MEDS ORDERED: P-EPHED 60MG/TRIPROLIDI 2.5MG TABLET PO PRN (00:28)
[2023-10-11] MEDS ORDERED: ONDANSETRON *ODT* 4 MG TABLET SL PRN (00:28)
[2023-10-11] MEDS ORDERED: guaiFENesin 600 MG TABLET.ER (FP) PO PRN (00:28)
[2023-10-11] MEDS ORDERED: LOPERAMIDE HCL 2 MG CAPSULE PO PRN (00:28)
[2023-10-11] MEDS ORDERED: DICYCLOMINE HCL 10 MG CAPSULE PO PRN (00:28)
[2023-10-11] MEDS ORDERED: BENZOCAINE/MENTHOL (CHLORASEPTIC ) LOZENGE MM PRN (00:28)
[2023-10-11] MEDS: chlordiazePOXIDE HCL 25 MG CAPSULE PO ONE (01:30)
[2023-10-11] MEDS ORDERED: chlordiazePOXIDE HCL 25 MG CAPSULE ONE (01:45)
[2023-10-11] MEDS: chlordiazePOXIDE HCL 25 MG CAPSULE PO SCH (06:00)
[2023-10-11] MEDS: MAG HYDROX/AL HYDROX/SIMETH 30 ML UNIT-DOSE CUP PO PRN (07:01)
[2023-10-11] MEDS: LISINOPRIL 5 MG TABLET PO SCH (10:12)
[2023-10-11] MEDS: PRENATAL VITAMINS W/ FOLIC ACID TABLET (FP) PO SCH (10:12)
[2023-10-11] MEDS: amLODIPine BESYLATE 5 MG TABLET (FP) PO SCH (10:12)
[2023-10-11] MEDS: MELATONIN 5 MG TABLETS PO SCH (22:23)
[2023-10-11] MEDS: THIAMINE HCL 100 MG TABLET (FP) PO SCH (22:23)
[2023-10-11] MEDS: hydrOXYzine PAMOATE 25 MG CAPSULE (FP) PO PRN (22:25)
[2023-10-12] MEDS: METHOCARBAMOL 500 MG TABLET PO PRN (00:10)
[2023-10-12] MEDS: chlordiazePOXIDE HCL 25 MG CAPSULE PO SCH (05:33)
[2023-10-12 11:37] LABS: HEMATOCRIT 32.4 % (35.4-49); HEMOGLOBIN 10.8 GM/dL (11.7-16.9); MCHC 33.3 g/dl (32.0-35.9); MEAN PLT VOLUME 8.1 fl (7.5-11.1); PLATELET COUNT 528 10^3/uL (134-434); RBC 3.27 M/mm3 (4.00-5.60); RDW 13.7 % (11.9-15.9); WHITE BLOOD COUNT 7.9 K/mm3 (4.0-10.0)
[2023-10-12 12:21] LABS: POTASSIUM 4.8 mmol/L (3.5-5.1)
[2023-10-12 12:34] LABS: ALBUMIN 2.6 g/dl (3.4-5.0); CALCIUM 9.5 mg/dL (8.5-10.1)
[2023-10-12 12:37] LABS: CREATININE 1.7 mg/dL (0.55-1.3)
[2023-10-12 12:38] LABS: BLOOD UREA NITROGEN 32.4 mg/dL (7-18)
[2023-10-12 12:39] LABS: BILIRUBIN,TOTAL 0.8 mg/dL (0.2-1)
[2023-10-12 12:42] LABS: TOT PROT 6.8 g/dl (6.4-8.2)
[2023-10-12] MEDS: amLODIPine BESYLATE 5 MG TABLET (FP) PO ONE (13:13)
[2023-10-12] MEDS: cloNIDine HCL 0.1 MG TABLET PO ONE (18:45)
[2023-10-13] MEDS ORDERED: chlordiazePOXIDE HCL 10 MG CAPSULE PO PRN
[2023-10-13] MEDS: chlordiazePOXIDE HCL 10 MG CAPSULE PO SCH (05:31)
[2023-10-13] MEDS: ACETAMINOPHEN 325 MG TABLET (FP) PO PRN (05:33)
[2023-10-13] MEDS: POLYETHYLENE GLYCOL (HEALTHYLAX) 3350 17 GM PACKET PO PRN (06:50)
[2023-10-13] MEDS: amLODIPine BESYLATE 10 MG TABLET (FP) PO SCH (10:05)
[2023-10-13] MEDS: METHOCARBAMOL 500 MG TABLET PO PRN (11:33)
[2023-10-13] MEDS: LIDOCAINE 5% TOPICAL PATCH TP SCH (11:33)
[2023-10-13] MEDS: LACTULOSE 20 GM/30 ML UDC (FOR ORAL USE ONLY) PO SCH (22:20)
[2023-10-13] MEDS: LIDOCAINE PATCH REMOVAL MC SCH (22:21)
[2023-10-14] MEDS: chlordiazePOXIDE HCL 10 MG CAPSULE PO SCH (05:26)
[2023-10-14] MEDS: BISMUTH SUBSALICYLATE 524 MG/30 ML PO PRN (22:16)
[2023-10-15] MEDS: chlordiazePOXIDE HCL 10 MG CAPSULE PO ONE (05:27)
[2023-10-15] MEDS: NICOTINE POLACRILEX 2 MG GUM BUC PRN (09:33)
[2023-10-16 06:21] VITALS: RESP 16
[2023-10-16] MEDS: MAGNESIUM HYDROX 2400MG/30ML ORAL SUSPENSION 30 ML CUP PO PRN (07:27)
[2023-10-16 09:05] VITALS: BP 148/88; PULSE 64; TEMP 98.2
== END 2023-10-16 10:55 | disposition home or self-care (01) | DRG 774 ==
LOC: YASAS 23:24 → Y3N 10-11 01:33
PROVIDERS: ADMIT Allergy & Immunology; ATTEND Surgery
PROC: HZ2ZZZZ Detoxification Services for Substance Abuse Treatment (ICD-10-PCS; principal; 2023-10-11)
DX: F10.230 Alcohol dependence with withdrawal, uncomplicated (principal); F14.20 Cocaine dependence, uncomplicated; F17.210 Nicotine dependence, cigarettes, uncomplicated; E78.5 Hyperlipidemia, unspecified; I12.9 Hypertensive chronic kidney disease with stage 1 through stage 4 chronic kidney disease, or unspecified chronic kidney disease; N18.32 Chronic kidney disease, stage 3b; K21.9 Gastro-esophageal reflux disease without esophagitis; R79.89 Other specified abnormal findings of blood chemistry; R74.8 Abnormal levels of other serum enzymes
CPT/HCPCS: 0241U-QW; 36415; 80053; 82140; 85027; 86780

== ENCOUNTER 2023-11-28 10:53 | Inpatient (IN) | payer OTHER ==
[2023-11-28 11:23] VITALS: BMI 26.9
[2023-11-28] MEDS ORDERED: chlordiazePOXIDE HCL 25 MG CAPSULE PO PRN (11:28)
[2023-11-28] MEDS ORDERED: ONDANSETRON *ODT* 4 MG TABLET SL PRN (11:31)
[2023-11-28] MEDS ORDERED: guaiFENesin 600 MG TABLET.ER (FP) PO PRN (11:31)
[2023-11-28] MEDS ORDERED: IBUPROFEN 400 MG TABLET (FP) PO PRN (11:31)
[2023-11-28] MEDS ORDERED: POLYETHYLENE GLYCOL (HEALTHYLAX) 3350 17 GM PACKET PO PRN (11:31)
[2023-11-28] MEDS ORDERED: NICOTINE POLACRILEX 2 MG LOZENGE BC PRN (11:31)
[2023-11-28] MEDS ORDERED: ACETAMINOPHEN 325 MG TABLET (FP) PO PRN (11:31)
[2023-11-28] MEDS ORDERED: DICYCLOMINE HCL 10 MG CAPSULE PO PRN (11:31)
[2023-11-28] MEDS ORDERED: BENZOCAINE/MENTHOL (CHLORASEPTIC ) LOZENGE MM PRN (11:31)
[2023-11-28] MEDS ORDERED: BENZONATATE 200 MG CAPSULE PO PRN (11:31)
[2023-11-28] MEDS: LISINOPRIL 20 MG TABLET PO ONE (13:10)
[2023-11-28] MEDS: FERROUS SO4 325 MG TABLET (FP) PO SCH (13:10)
[2023-11-28] MEDS: chlordiazePOXIDE HCL 25 MG CAPSULE PO SCH (17:35)
[2023-11-28] MEDS: LOPERAMIDE HCL 2 MG CAPSULE PO PRN (17:38)
[2023-11-28] MEDS: THIAMINE 100 MG TABLET PO SCH (22:09)
[2023-11-28] MEDS: MELATONIN 5 MG TABLETS PO SCH (22:10)
[2023-11-29] MEDS: PRENATAL VITAMINS W/ FOLIC ACID TABLET (FP) PO SCH (10:13)
[2023-11-29] MEDS: amLODIPine BESYLATE 10 MG TABLET (FP) PO SCH (10:14)
[2023-11-29] MEDS: BISMUTH SUBSALICYLATE 262 MG/15 ML BTL PO PRN (10:28)
[2023-11-29 11:49] LABS: HEMATOCRIT 31.7 % (35.4-49); HEMOGLOBIN 10.9 GM/dL (11.7-16.9); MCH 33.5 pg (25.7-33.7); MCHC 34.4 g/dl (32.0-35.9); MEAN CELL VOLUME 97.3 fl (80-96); MEAN PLT VOLUME 8.2 fl (7.5-11.1); PLATELET COUNT 189 10^3/uL (134-434); RBC 3.26 M/mm3 (4.00-5.60); RDW 15.3 % (11.9-15.9); WHITE BLOOD COUNT 6.2 K/mm3 (4.0-10.0)
[2023-11-29 11:50] LABS: POTASSIUM 3.9 mmol/L (3.5-5.1)
[2023-11-29 11:57] LABS: CALCIUM 9.3 mg/dL (8.5-10.1)
[2023-11-29 11:58] LABS: BLOOD UREA NITROGEN 23.2 mg/dL (7-18)
[2023-11-29 12:00] LABS: BILIRUBIN,TOTAL 0.9 mg/dL (0.2-1); TOT PROT 7.1 g/dl (6.4-8.2)
[2023-11-29 12:01] LABS: CREATININE 1.6 mg/dL (0.55-1.3)
[2023-11-29] MEDS: MAGNESIUM HYDROX 2400MG/30ML ORAL SUSPENSION 30 ML CUP PO PRN (12:58)
[2023-11-29] MEDS: chlordiazePOXIDE HCL 10 MG CAPSULE PO SCH (17:22)
[2023-11-29] MEDS: METHOCARBAMOL 500 MG TABLET PO PRN (20:41)
[2023-11-29] MEDS: IBUPROFEN 600 MG TABLET (FP) PO PRN (20:41)
[2023-11-29] MEDS: hydrOXYzine PAMOATE 25 MG CAPSULE (FP) PO PRN (20:42)
[2023-11-30] MEDS ORDERED: chlordiazePOXIDE HCL 25 MG CAPSULE PO SCH (05:00)
[2023-11-30] MEDS: chlordiazePOXIDE HCL 10 MG CAPSULE PO SCH (05:59)
[2023-11-30] MEDS: MAG HYDROX/AL HYDROX/SIMETH 30 ML UNIT-DOSE CUP PO PRN (06:16)
[2023-11-30] MEDS: NICOTINE POLACRILEX 2 MG GUM BUC PRN (10:21)
[2023-12-01] MEDS ORDERED: chlordiazePOXIDE HCL 10 MG CAPSULE PO PRN
[2023-12-01] MEDS: chlordiazePOXIDE HCL 10 MG CAPSULE PO SCH (05:25)
[2023-12-01] MEDS: LIDOCAINE 5% TOPICAL PATCH TP SCH (11:15)
[2023-12-01] MEDS: NICOTINE 7 MG/24 HOURS TOPICAL PATCH TD PRN (11:19)
[2023-12-01] MEDS: LIDOCAINE PATCH REMOVAL MC SCH (22:21)
[2023-12-02] MEDS: chlordiazePOXIDE HCL 10 MG CAPSULE PO SCH (05:49)
[2023-12-02] MEDS: ARTIFICIAL TEARS OPHTHALMIC DROPS OU SCH (13:24)
[2023-12-03] MEDS: chlordiazePOXIDE HCL 10 MG CAPSULE PO ONE (05:29)
[2023-12-03 05:56] VITALS: BP 152/94; PULSE 58; RESP 18; TEMP 97.7
== END 2023-12-03 09:15 | disposition home or self-care (01) | DRG 774 ==
LOC: YASAS 10:53 → Y6N 12:26
PROVIDERS: ADMIT Allergy & Immunology; ATTEND Surgery
PROC: HZ2ZZZZ Detoxification Services for Substance Abuse Treatment (ICD-10-PCS; principal; 2023-11-28)
DX: F10.230 Alcohol dependence with withdrawal, uncomplicated (principal); F14.20 Cocaine dependence, uncomplicated; F17.210 Nicotine dependence, cigarettes, uncomplicated; D64.9 Anemia, unspecified; E78.5 Hyperlipidemia, unspecified; I12.9 Hypertensive chronic kidney disease with stage 1 through stage 4 chronic kidney disease, or unspecified chronic kidney disease; N18.32 Chronic kidney disease, stage 3b; K21.9 Gastro-esophageal reflux disease without esophagitis; M54.50 Low back pain, unspecified; G89.29 Other chronic pain; R56.9 Unspecified convulsions; R74.8 Abnormal levels of other serum enzymes; Z99.89 Dependence on other enabling machines and devices
CPT/HCPCS: 36415; 80053; 80305; 80307; 85027; 86780; 93005; 93010

== ENCOUNTER 2024-01-07 13:57 | Emergency (ER) | payer OTHER ==
[2024-01-07 14:08] VITALS: BMI 24.2
[2024-01-07] MEDS ORDERED: chlordiazePOXIDE HCL 25 MG CAPSULE ONE (14:59)
[2024-01-07] MEDS ORDERED: ONDANSETRON 4 MG/2 ML VIAL ONE (15:00)
[2024-01-07] MEDS ORDERED: ACETAMINOPHEN INJECTION 100 ML IVPB ONE (15:00)
[2024-01-07] MEDS: SODIUM CHLORIDE 0.9% 500 ML INFUS.BAG IV ONE (15:29)
[2024-01-07] MEDS: ACETAMINOPHEN 1000 MG/100 ML BAG IVPB ONE (15:30)
[2024-01-07] MEDS: ONDANSETRON 4 MG/2 ML VIAL IVPUSH ONE (15:30)
[2024-01-07 15:32] LABS: BASO % 0.4 % (0-2.0); EOS % 1.5 % (0-4.5); HEMATOCRIT 32.7 % (35.4-49); HEMOGLOBIN 11.1 GM/dL (11.7-16.9); LYMPH % 10.8 % (8-40); MCH 32.8 pg (25.7-33.7); MCHC 33.8 g/dl (32.0-35.9); MEAN CELL VOLUME 96.9 fl (80-96); MEAN PLT VOLUME 6.9 fl (7.5-11.1); MONO % 11.6 % (3.8-10.2); NEUT % 75.7 % (42.8-82.8); PLATELET COUNT 223 10^3/uL (134-434); RBC 3.37 M/mm3 (4.00-5.60); RDW 15.7 % (11.9-15.9)
[2024-01-07] MEDS: chlordiazePOXIDE HCL 25 MG CAPSULE PO ONE (15:54)
[2024-01-07 15:57] LABS: POTASSIUM 3.4 mmol/L (3.5-5.1)
[2024-01-07 15:59] LABS: CALCIUM 9.1 mg/dL (8.5-10.1)
[2024-01-07 16:00] LABS: ALBUMIN 2.5 g/dl (3.4-5.0); BLOOD UREA NITROGEN 19.3 mg/dL (7-18); MAGNESIUM 1.2 mg/dL (1.8-2.4)
[2024-01-07 16:03] LABS: CREATININE 1.6 mg/dL (0.55-1.3)
[2024-01-07 16:04] LABS: BILIRUBIN,TOTAL 0.6 mg/dL (0.2-1)
[2024-01-07 16:05] LABS: TOT PROT 6.5 g/dl (6.4-8.2)
[2024-01-07 17:30] VITALS: BP 144/92; PULSE 85; RESP 14; TEMP 98.5
[2024-01-07] MEDS ORDERED: MAGNESIUM SULFATE IN WATER 2 GM/50 ML IVPB IVPB ONE (17:32)
[2024-01-07] MEDS ORDERED: POTASSIUM CHLORIDE ORAL LIQUID 20 MEQ/15 ML ONE (17:32)
[2024-01-07] MEDS: POTASSIUM CHLORIDE ORAL LIQUID 20 MEQ/15 ML PO ONE (17:41)
[2024-01-07] MEDS: MAGNESIUM SULF 50% (8.12 MEQ/2 ML-1 GM VIAL) IVPB ONE (17:41)
[2024-01-07] MEDS ORDERED: LIDOCAINE 4% PATCH TP ONE (18:16)
[2024-01-07] MEDS: LIDOCAINE 4% PATCH TP ONE (18:21)
== END 2024-01-07 19:30 ==
LOC: JER 13:57
PROC: 3E033NZ Introduction of Analgesics, Hypnotics, Sedatives into Peripheral Vein, Percutaneous Approach (ICD-10-PCS; principal; 2024-01-07)
PROC: 3E033GC Introduction of Other Therapeutic Substance into Peripheral Vein, Percutaneous Approach (ICD-10-PCS; 2024-01-07)
PROC: 3E033GC Introduction of Other Therapeutic Substance into Peripheral Vein, Percutaneous Approach (ICD-10-PCS; 2024-01-07)
PROC: 3E033GC Introduction of Other Therapeutic Substance into Peripheral Vein, Percutaneous Approach (ICD-10-PCS; 2024-01-07)
DX: R07.81 Pleurodynia (principal); R53.1 Weakness; R42 Dizziness and giddiness; R55 Syncope and collapse; R25.1 Tremor, unspecified; R11.0 Nausea; F10.930 Alcohol use, unspecified with withdrawal, uncomplicated; Y90.9 Presence of alcohol in blood, level not specified
CPT/HCPCS: 36415; 80053; 83735; 85025; 93005; 93010; 99284-25; J0131

== ENCOUNTER 2024-01-07 19:54 | Inpatient (IN) | payer OTHER ==
[2024-01-07 20:22] VITALS: BMI 22.0
[2024-01-07] MEDS ORDERED: MAG HYDROX/AL HYDROX/SIMETH 30 ML UNIT-DOSE CUP PO PRN (21:19)
[2024-01-07] MEDS ORDERED: LOPERAMIDE HCL 2 MG CAPSULE PO PRN (21:19)
[2024-01-07] MEDS ORDERED: POLYETHYLENE GLYCOL (HEALTHYLAX) 3350 17 GM PACKET PO PRN (21:19)
[2024-01-07] MEDS ORDERED: IBUPROFEN 400 MG TABLET (FP) PO PRN (21:19)
[2024-01-07] MEDS ORDERED: ONDANSETRON *ODT* 4 MG TABLET SL PRN (21:19)
[2024-01-07] MEDS ORDERED: BENZONATATE 200 MG CAPSULE PO PRN (21:19)
[2024-01-07] MEDS ORDERED: DICYCLOMINE HCL 10 MG CAPSULE PO PRN (21:19)
[2024-01-07] MEDS ORDERED: guaiFENesin 600 MG TABLET.ER (FP) PO PRN (21:19)
[2024-01-07] MEDS ORDERED: NALOXONE (NARCAN) HCL 4 MG/0.1 ML SPRAY NS PRN (21:19)
[2024-01-07] MEDS ORDERED: NICOTINE POLACRILEX 2 MG GUM BUC PRN (21:19)
[2024-01-07] MEDS ORDERED: BISMUTH SUBSALICYLATE 524 MG/30 ML PO PRN (21:19)
[2024-01-07] MEDS ORDERED: NALOXONE HCL 0.4 MG/ML VIAL IM PRN (21:19)
[2024-01-07] MEDS ORDERED: ACETAMINOPHEN 325 MG TABLET (FP) PO PRN (21:19)
[2024-01-07] MEDS ORDERED: cloNIDine HCL 0.1 MG TABLET ONE (21:52)
[2024-01-07] MEDS: cloNIDine HCL 0.1 MG TABLET PO ONE (21:54)
[2024-01-07] MEDS: IBUPROFEN 600 MG TABLET (FP) PO PRN (22:44)
[2024-01-07] MEDS: THIAMINE 100 MG TABLET PO SCH (22:46)
[2024-01-07] MEDS: MELATONIN 5 MG TABLETS PO SCH (22:49)
[2024-01-08] MEDS: hydrOXYzine PAMOATE 25 MG CAPSULE (FP) PO PRN (01:40)
[2024-01-08] MEDS: METHOCARBAMOL 500 MG TABLET PO PRN (01:40)
[2024-01-08] MEDS: PRENATAL VITAMINS W/ FOLIC ACID TABLET (FP) PO SCH (09:41)
[2024-01-08] MEDS: NICOTINE 14 MG/24 HOURS TOPICAL PATCH TD SCH (09:43)
[2024-01-08] MEDS: MAGNESIUM HYDROX 2400MG/30ML ORAL SUSPENSION 30 ML CUP PO PRN (09:43)
[2024-01-08] MEDS ORDERED: ALBUTEROL SO4 HFA INHALER IH PRN (10:20)
[2024-01-08] MEDS ORDERED: ALBUTEROL SO4 0.083% IH SOL 2.5 MG/3 ML VIAL.NEB. NEB PRN (10:20)
[2024-01-08] MEDS ORDERED: TRIMETHOBENZAMIDE HCL 200MG/2ML INJ IM PRN (10:22)
[2024-01-08] MEDS: amLODIPine BESYLATE 10 MG TABLET (FP) PO SCH (10:58)
[2024-01-08] MEDS: PANTOPRAZOLE 40 MG TABLET PO SCH (10:58)
[2024-01-08 11:02] LABS: CHLORIDE 103 mmol/L (98-107); POTASSIUM 3.2 mmol/L (3.5-5.1); SODIUM 137 mmol/L (136-145)
[2024-01-08 11:06] LABS: ALBUMIN 2.4 g/dl (3.4-5.0); ANION GAP 7 mmol/L (4-13); BLOOD UREA NITROGEN 20.6 mg/dL (7-18); CALCIUM 8.9 mg/dL (8.5-10.1); CO2 27 mmol/L (21-32); GLUCOSE,RANDOM 150 mg/dL (74-106); HEMATOCRIT 29.6 % (35.4-49); HEMOGLOBIN 10.1 GM/dL (11.7-16.9); MCH 33.5 pg (25.7-33.7); MEAN CELL VOLUME 98.4 fl (80-96); MEAN PLT VOLUME 7.6 fl (7.5-11.1); PLATELET COUNT 193 10^3/uL (134-434); RBC 3.01 M/mm3 (4.00-5.60); RDW 15.9 % (11.9-15.9); WHITE BLOOD COUNT 5.1 K/mm3 (4.0-10.0)
[2024-01-08 11:09] LABS: SGPT/ALT 33 U/L (13-61)
[2024-01-08 11:10] LABS: SGOT/AST 53 U/L (15-37)
[2024-01-08 11:11] LABS: BILIRUBIN,TOTAL 0.6 mg/dL (0.2-1); TOT PROT 6.2 g/dl (6.4-8.2)
[2024-01-08 11:12] LABS: ALK PHOS 84 U/L (45-117)
[2024-01-08] MEDS: diazePAM 5 MG TABLET PO SCH (17:10)
[2024-01-08] MEDS: BUDESONIDE/FORMETEROL FUMARATE 160/4.5 mcg INHALER IH SCH (22:25)
[2024-01-09] MEDS: diazePAM 5 MG TABLET PO SCH (06:42)
[2024-01-09] MEDS: SUCRALFATE 1 GM TABLET (FP) PO SCH (06:43)
[2024-01-10] MEDS: diazePAM 5 MG TABLET PO SCH (05:33)
[2024-01-10] MEDS: BENZOCAINE/MENTHOL (CHLORASEPTIC ) LOZENGE MM PRN (08:57)
[2024-01-10] MEDS: POTASSIUM CHLORIDE ORAL LIQUID 20 MEQ/15 ML PO SCH (13:39)
[2024-01-10] MEDS: SUVOREXANT 10 MG TABLET PO PRN (22:05)
[2024-01-11] MEDS: diazePAM 5 MG TABLET PO ONE (05:39)
[2024-01-11 11:59] LABS: POTASSIUM 3.6 mmol/L (3.5-5.1)
[2024-01-11 12:01] LABS: ALBUMIN 2.5 g/dl (3.4-5.0); BLOOD UREA NITROGEN 43.1 mg/dL (7-18); CALCIUM 8.1 mg/dL (8.5-10.1)
[2024-01-11 12:05] LABS: CREATININE 2.5 mg/dL (0.55-1.3)
[2024-01-11 12:06] LABS: PHOSPHOROUS 3.4 mg/dL (2.5-4.9)
[2024-01-12 09:39] VITALS: RESP 18
[2024-01-12 13:21] VITALS: BP 135/86; PULSE 72; TEMP 97.8
== END 2024-01-12 15:29 | disposition home or self-care (01) | DRG 774 ==
LOC: YASAS 19:54 → Y6N 21:35
PROVIDERS: ADMIT Allergy & Immunology; ATTEND Surgery
PROC: HZ2ZZZZ Detoxification Services for Substance Abuse Treatment (ICD-10-PCS; principal; 2024-01-07)
DX: F10.230 Alcohol dependence with withdrawal, uncomplicated (principal); F14.20 Cocaine dependence, uncomplicated; F17.210 Nicotine dependence, cigarettes, uncomplicated; F10.282 Alcohol dependence with alcohol-induced sleep disorder; F41.9 Anxiety disorder, unspecified; E78.5 Hyperlipidemia, unspecified; E87.6 Hypokalemia; I10 Essential (primary) hypertension; K21.9 Gastro-esophageal reflux disease without esophagitis
CPT/HCPCS: 36415; 80053; 80069; 80305; 80307; 83036; 83735; 84132; 85025; 85027; 86780; 93005; 93010; 99284-25; J0131

== ENCOUNTER 2024-01-25 21:02 | Inpatient (IN) | payer OTHER ==
[2024-01-25 21:32] VITALS: BMI 22.0
[2024-01-25] MEDS ORDERED: NICOTINE POLACRILEX 2 MG GUM BUC PRN (21:32)
[2024-01-25] MEDS ORDERED: BISMUTH SUBSALICYLATE 524 MG/30 ML PO PRN (21:32)
[2024-01-25] MEDS ORDERED: MAG HYDROX/AL HYDROX/SIMETH 30 ML UNIT-DOSE CUP PO PRN (21:32)
[2024-01-25] MEDS ORDERED: DICYCLOMINE HCL 10 MG CAPSULE PO PRN (21:32)
[2024-01-25] MEDS ORDERED: IBUPROFEN 400 MG TABLET (FP) PO PRN (21:32)
[2024-01-25] MEDS ORDERED: BENZONATATE 200 MG CAPSULE PO PRN (21:32)
[2024-01-25] MEDS ORDERED: ACETAMINOPHEN 325 MG TABLET (FP) PO PRN (21:32)
[2024-01-25] MEDS ORDERED: guaiFENesin 600 MG TABLET.ER (FP) PO PRN (21:32)
[2024-01-25] MEDS ORDERED: NICOTINE POLACRILEX 2 MG LOZENGE BC PRN (21:32)
[2024-01-25] MEDS ORDERED: ONDANSETRON *ODT* 4 MG TABLET SL PRN (21:32)
[2024-01-25] MEDS ORDERED: LOPERAMIDE HCL 2 MG CAPSULE PO PRN (21:32)
[2024-01-25] MEDS ORDERED: ALBUTEROL SO4 HFA INHALER IH PRN (21:33)
[2024-01-25] MEDS ORDERED: levETIRAcetam 500 MG TABLET (FP) PO ONE (22:11)
[2024-01-25] MEDS ORDERED: MELATONIN 5 MG TABLETS ONE (22:12)
[2024-01-25] MEDS ORDERED: METOPROLOL TARTRATE 25 MG TABLET (FP) ONE (22:12)
[2024-01-25] MEDS: MELATONIN 5 MG TABLETS PO SCH (22:15)
[2024-01-25] MEDS: METOPROLOL TARTRATE 25 MG TABLET (FP) PO ONE (22:15)
[2024-01-25] MEDS: levETIRAcetam 500 MG TABLET (FP) PO SCH (22:15)
[2024-01-25] MEDS: THIAMINE 100 MG TABLET PO SCH (22:15)
[2024-01-26] MEDS: PRENATAL VITAMINS W/ FOLIC ACID TABLET (FP) PO SCH (09:15)
[2024-01-26] MEDS: amLODIPine BESYLATE 10 MG TABLET (FP) PO SCH (09:15)
[2024-01-26] MEDS ORDERED: LORazepam 1 MG TABLET PO PRN (09:46)
[2024-01-26] MEDS: NALTREXONE HCL 50 MG TABLET PO SCH (10:44)
[2024-01-26] MEDS: LORazepam 2 MG TABLET PO SCH (10:45)
[2024-01-26] MEDS: FERROUS SO4 325 MG TABLET (FP) PO SCH (11:19)
[2024-01-27] MEDS: LORazepam 1 MG TABLET PO SCH (05:21)
[2024-01-27] MEDS: MAGNESIUM HYDROX 2400MG/30ML ORAL SUSPENSION 30 ML CUP PO PRN (10:07)
[2024-01-28] MEDS: hydrOXYzine PAMOATE 25 MG CAPSULE (FP) PO PRN (01:44)
[2024-01-28] MEDS: LORazepam 0.5 MG TABLET PO SCH (05:32)
[2024-01-28] MEDS: IBUPROFEN 600 MG TABLET (FP) PO PRN (10:23)
[2024-01-28 13:41] LABS: POTASSIUM 3.6 mmol/L (3.5-5.1)
[2024-01-28 13:42] LABS: CALCIUM 9.1 mg/dL (8.5-10.1)
[2024-01-28 13:43] LABS: ALBUMIN 2.7 g/dl (3.4-5.0); BLOOD UREA NITROGEN 21.3 mg/dL (7-18)
[2024-01-28 13:46] LABS: CREATININE 2.3 mg/dL (0.55-1.3)
[2024-01-28 13:47] LABS: PHOSPHOROUS 3.6 mg/dL (2.5-4.9)
[2024-01-28] MEDS: POLYETHYLENE GLYCOL (HEALTHYLAX) 3350 17 GM PACKET PO PRN (17:32)
[2024-01-28] MEDS: BENZOCAINE/MENTHOL (CHLORASEPTIC ) LOZENGE MM PRN (17:34)
[2024-01-28] MEDS: METHOCARBAMOL 500 MG TABLET PO PRN (22:07)
[2024-01-29] MEDS: LORazepam 0.5 MG TABLET PO ONE (05:32)
[2024-01-30 09:15] VITALS: BP 129/82; PULSE 62; RESP 16; TEMP 98.4
== END 2024-01-30 09:56 | disposition home or self-care (01) | DRG 774 ==
LOC: YASAS 21:02 → Y6N 21:51
PROVIDERS: ADMIT Allergy & Immunology; ATTEND Surgery
PROC: HZ2ZZZZ Detoxification Services for Substance Abuse Treatment (ICD-10-PCS; principal; 2024-01-25)
DX: F10.230 Alcohol dependence with withdrawal, uncomplicated (principal); F14.20 Cocaine dependence, uncomplicated; I10 Essential (primary) hypertension; D50.9 Iron deficiency anemia, unspecified; N18.32 Chronic kidney disease, stage 3b; K59.00 Constipation, unspecified; K21.9 Gastro-esophageal reflux disease without esophagitis; R00.0 Tachycardia, unspecified; Z86.11 Personal history of tuberculosis; Z86.69 Personal history of other diseases of the nervous system and sense organs
CPT/HCPCS: 36415; 70450-TC; 80048; 80053; 80069; 80305; 80307; 81003; 82550; 82553; 83605; 83690; 83735; 84100; 84484; 85025; 86803; 87389; 93005; 93010; 99283-25

== ENCOUNTER 2024-03-31 11:34 | Inpatient (IN) | payer OTHER ==
[2024-03-31 11:50] VITALS: BMI 22.5
[2024-03-31] MEDS ORDERED: ACETAMINOPHEN 325 MG TABLET (FP) PO PRN (12:56)
[2024-03-31] MEDS ORDERED: ONDANSETRON *ODT* 4 MG TABLET SL PRN (12:56)
[2024-03-31] MEDS ORDERED: BISMUTH SUBSALICYLATE 524 MG/30 ML PO PRN (12:56)
[2024-03-31] MEDS ORDERED: guaiFENesin 600 MG TABLET.ER (FP) PO PRN (12:56)
[2024-03-31] MEDS ORDERED: LOPERAMIDE HCL 2 MG CAPSULE PO PRN (12:56)
[2024-03-31] MEDS ORDERED: BENZONATATE 200 MG CAPSULE PO PRN (12:56)
[2024-03-31] MEDS ORDERED: NALOXONE (NARCAN) HCL 4 MG/0.1 ML SPRAY NS PRN (12:56)
[2024-03-31] MEDS ORDERED: DICYCLOMINE HCL 10 MG CAPSULE PO PRN (12:56)
[2024-03-31] MEDS ORDERED: MAG HYDROX/AL HYDROX/SIMETH 30 ML UNIT-DOSE CUP PO PRN (12:56)
[2024-03-31] MEDS ORDERED: IBUPROFEN 600 MG TABLET (FP) PO PRN (12:56)
[2024-03-31] MEDS ORDERED: ALBUTEROL SO4 HFA INHALER IH PRN (13:00)
[2024-03-31] MEDS ORDERED: chlordiazePOXIDE HCL 25 MG CAPSULE PO PRN (13:06)
[2024-03-31] MEDS: NALOXONE (NYS OPIOID OVERDOSE PROGRAM) 4 MG/0.1 ML SPRAY NS ONE (13:23)
[2024-03-31] MEDS: chlordiazePOXIDE HCL 25 MG CAPSULE PO SCH (17:09)
[2024-03-31] MEDS: hydrOXYzine PAMOATE 25 MG CAPSULE (FP) PO PRN (21:08)
[2024-03-31] MEDS: THIAMINE 100 MG TABLET PO SCH (22:14)
[2024-03-31] MEDS: MELATONIN 5 MG TABLETS PO SCH (22:14)
[2024-03-31] MEDS: levETIRAcetam 500 MG TABLET (FP) PO SCH (22:14)
[2024-04-01] MEDS: PRENATAL VITAMINS W/ FOLIC ACID TABLET (FP) PO SCH (10:15)
[2024-04-01] MEDS: amLODIPine BESYLATE 10 MG TABLET (FP) PO SCH (10:15)
[2024-04-01] MEDS: FOLIC ACID 1 MG TABLET (FP) PO SCH (10:16)
[2024-04-01] MEDS: NALTREXONE HCL 50 MG TABLET PO SCH (10:16)
[2024-04-01] MEDS: FERROUS SO4 325 MG TABLET (FP) PO SCH (10:16)
[2024-04-01] MEDS: MAGNESIUM HYDROX 2400MG/30ML ORAL SUSPENSION 30 ML CUP PO PRN (16:31)
[2024-04-01] MEDS: IBUPROFEN 400 MG TABLET (FP) PO PRN (16:37)
[2024-04-02] MEDS: chlordiazePOXIDE HCL 25 MG CAPSULE PO SCH (05:44)
[2024-04-02] MEDS: POLYETHYLENE GLYCOL (HEALTHYLAX) 3350 17 GM PACKET PO PRN (10:09)
[2024-04-02] MEDS: NICOTINE POLACRILEX 2 MG GUM BUC PRN (10:29)
[2024-04-02] MEDS: BENZOCAINE/MENTHOL (CHLORASEPTIC ) LOZENGE MM PRN (10:29)
[2024-04-02] MEDS ORDERED: NALOXONE (NYS OPIOID OVERDOSE PROGRAM) 4 MG/0.1 ML SPRAY NS PRN (12:02)
[2024-04-03] MEDS: chlordiazePOXIDE HCL 10 MG CAPSULE PO SCH (05:53)
[2024-04-03] MEDS: chlordiazePOXIDE HCL 10 MG CAPSULE PO PRN (09:40)
[2024-04-03 14:37] LABS: HEMATOCRIT 31.3 % (35.4-49); HEMOGLOBIN 10.3 GM/dL (11.7-16.9); MCH 32.3 pg (25.7-33.7); MEAN PLT VOLUME 8.6 fl (7.5-11.1); PLATELET COUNT 173 10^3/uL (134-434); RDW 15.8 % (11.9-15.9); WHITE BLOOD COUNT 6.5 K/mm3 (4.0-10.0)
[2024-04-03 14:52] LABS: POTASSIUM 5.3 mmol/L (3.5-5.1)
[2024-04-03 14:55] LABS: ALBUMIN 2.5 g/dl (3.4-5.0); BLOOD UREA NITROGEN 36.7 mg/dL (7-18); CALCIUM 9.8 mg/dL (8.5-10.1)
[2024-04-03 14:58] LABS: CREATININE 4.5 mg/dL (0.55-1.3)
[2024-04-03 15:00] LABS: BILIRUBIN,TOTAL 0.6 mg/dL (0.2-1); TOT PROT 6.5 g/dl (6.4-8.2)
[2024-04-03] MEDS: SODIUM POLYSTYRENE SULFONATE 15 GM/60 ML BOTTLE PO ONE (16:29)
[2024-04-03] MEDS: METHOCARBAMOL 500 MG TABLET PO PRN (22:14)
[2024-04-03 22:52] LABS: EPI CELLS 6 /uL (0-25.1); HYALINE CASTS 0 /uL (0-3.1); PH,URINE 7.5 (5.0-8.0); URINE APPEARANCE CLEAR; URINE BACTERIA 13 /uL (0-1359); URINE BILIRUBIN NEGATIVE (NEGATIVE); URINE COLOR YELLOW; URINE GLUCOSE (UA) NEGATIVE (NEGATIVE); URINE KETONE NEGATIVE (NEGATIVE); URINE LEUK ESTERASE NEGATIVE (NEGATIVE); URINE NITRITE NEGATIVE (NEGATIVE); URINE PROTEIN 3+ (NEGATIVE); URINE RBC 8 /uL (0-23.9); URINE UROBILINOGEN 0.2 mg/dL (0.2-1.0); URINE WBC 6 /uL (0-25.8)
[2024-04-04] MEDS: chlordiazePOXIDE HCL 10 MG CAPSULE PO SCH (05:33)
[2024-04-04] MEDS: LIDOCAINE 5% TOPICAL PATCH TP SCH (11:16)
[2024-04-04 12:36] VITALS: BP 157/96; PULSE 61; RESP 16; TEMP 97.7
[2024-04-04] MEDS ORDERED: LIDOCAINE PATCH REMOVAL MC SCH ×2 (22:00)
[2024-04-05] MEDS ORDERED: chlordiazePOXIDE HCL 10 MG CAPSULE PO ONE (05:00)
== END 2024-04-04 13:05 | disposition left against medical advice (07) | DRG 770 ==
LOC: YASAS 11:34 → Y6N 12:43
PROVIDERS: ADMIT Allergy & Immunology; ATTEND Surgery
PROC: HZ2ZZZZ Detoxification Services for Substance Abuse Treatment (ICD-10-PCS; principal; 2024-03-31)
DX: F10.230 Alcohol dependence with withdrawal, uncomplicated (principal); F17.210 Nicotine dependence, cigarettes, uncomplicated; F41.9 Anxiety disorder, unspecified; F32.A Depression, unspecified; D50.9 Iron deficiency anemia, unspecified; E87.5 Hyperkalemia; G40.909 Epilepsy, unspecified, not intractable, without status epilepticus; I10 Essential (primary) hypertension; J45.20 Mild intermittent asthma, uncomplicated; K21.9 Gastro-esophageal reflux disease without esophagitis; R74.8 Abnormal levels of other serum enzymes; R73.9 Hyperglycemia, unspecified
CPT/HCPCS: 36415; 80053; 80305; 80307; 81003; 85027; 86780; 93005; 93010